=== PATIENT | female | born 1985 | race Asian ===

== ENCOUNTER 2021-01-20 00:33 | Observation (INO) ==
--- NOTE | 2021-01-20 05:15 | Communication Note ---
Date of Service: January 20, 2021 r/o labor. reactive nst
== END 2021-01-20 01:50 | disposition home or self-care (01) ==
LOC: OPB 00:33 → 4S1 00:33

== ENCOUNTER 2021-01-21 05:40 | Inpatient (IN) ==
[2021-01-21] MEDS ORDERED: OXYTOCIN 30 UNITS/500 ML BAG IV PRN (06:14)
[2021-01-21] MEDS ORDERED: PENICILLIN G POTASSIUM 6 MU in DEXTROSE 5% 250 ML IV STA (06:14)
[2021-01-21] MEDS ORDERED: fentaNYL citrate 100 MCG/2 ML VIAL ONE (06:20)
[2021-01-21] MEDS ORDERED: BUPIVACAINE 0.25% 30 ML VIAL ONE (06:20)
[2021-01-21] MEDS ORDERED: ePHEDrine sulfate 50 MG/ML AMP ONE (06:20)
[2021-01-21] MEDS ORDERED: SODIUM CHLORIDE 0.9% INJ 10 ML VIAL ONE (06:20)
[2021-01-21] MEDS ORDERED: fentaNYL 2MCG/ML ROPIVACAINE 1.25MG/ML 100 ML BAG EPI ONE (06:21)
[2021-01-21] MEDS: LACTATED RINGER'S 1,000 ML IV PRN ×3 (06:34→18:25)
[2021-01-21 07:00] LABS: Hematocrit (blood only) 38.9 % (37-47); Hemoglobin 13.9 g/dL (12.0-16.0); Mean Corpuscular Hemoglobin 33.3 pg (25-34); Mean Corpuscular Hgb Conc 35.7 g/dL (32-36); Mean Corpuscular Volume 93.3 fL (80-100); Mean Platelet Volume 10.5 fL (7.4-10.4); Platelet Count 190 K/uL (130-400); RDW Coefficient of Variation 13.8 % (11.5-14.5); RDW Standard Deviation 46.9 fL (36.4-46.3); Red Blood Count 4.17 M/uL (4.2-5.4); White Blood Count 8.45 K/uL (4.8-10.8)
--- NOTE | 2021-01-21 07:56 | Anesthesiology Consultation ---
Date of Service January 21, 2021 Assessment & Plan Chart Review Chart Review: Acceptable Risk for Labor Epidural Consults Requested none History Height/Weight Height: 5 ft 2.2 in Weight: 71.668 kg Allergies Allergy/AdvReac Type Severity Reaction Status Date / Time No Known Allergies Allergy Verified 01/19/21 09:07 Medications Home Medications Medication Instructions Recorded Confirmed Last Taken calcium carbonate 1 cap PO DAILY 01/20/21 01/20/21 Unknown docusate sodium 1 mg PO DAILY 01/20/21 01/20/21 Unknown ferrous sulfate 1 tab PO DAILY 01/20/21 01/20/21 Unknown folic acid 1 tab PO DAILY 01/20/21 01/20/21 01/19/21 omega-3 fatty acids 1 tab PO DAILY 01/20/21 01/20/21 Unknown ntdlbsgi-urr-He-FA 1 tab PO DAILY 01/20/21 01/20/21 Unknown [] Active Medications Generic Name Dose Route Start Last Admin Trade Name Freq PRN Reason Stop Dose Admin Lactated Ringer's 1,000 mls @ 125 mls/hr 01/21/21 06:14 01/21/21 07:39 Lr IV 01/23/21 06:13 999 mls/hr .Q8H PRN Administration L&D Protocol Protocol Past Medical History Medical History HPV test positive Past Family History Family History Denies family history of Ovarian cancer Breast cancer Colorectal cancer Past Surgical History Surgical History No history of previous surgery Social History Smoking Status: Never smoker Hx Alcohol Use: No Hx Substance Use: No substance use type: does not use Physical Exam Vital Signs Last Vital Signs Temp 36.9 C 01/21/21 07:46 Pulse 79 01/21/21 07:54 Resp 16 01/21/21 07:46 BP 115/65 01/21/21 07:48 Pulse Ox 97 01/21/21 07:54 Testing Laboratory Results 01/21/21 06:33
[2021-01-21] MEDS ORDERED: ePHEDrine sulfate 50 MG/ML AMP IV PRN ×2 (07:58→20:35)
[2021-01-21] MEDS ORDERED: NALOXONE HCL 0.4 MG/1 ML VIAL/CARP IV PRN ×2 (07:58→20:35)
[2021-01-21] MEDS ORDERED: fentaNYL 2MCG/ML ROPIVACAINE 1.25MG/ML 100 ML BAG EPI PRN (07:58)
[2021-01-21] MEDS ORDERED: diphenhydrAMINE 50 MG/ML VIAL IV PRN ×2 (07:58→20:35)
[2021-01-21] MEDS ORDERED: NALOXONE HCL 1 MG in SODIUM CHLORIDE 0.9% 1000ML 1,000 ML IV PRN ×2 (07:58→20:35)
[2021-01-21] MEDS: PENICILLIN G POTASSIUM 3 MU in DEXTROSE 5% 100 ML IV PRN ×3 (10:51→18:59)
--- NOTE | 2021-01-21 19:38 | Labor Progress Brief Note ---
Date of Service January 21, 2021 Subjective Patient very painful. Assessment & Plan (1) Failure of descent in labor, delivered, current hospitalization: Patient with new elevation in maternal temp (just taken and not charted yet per RN Dinah Chauhan) suggesting developing chorioamnionitis, with persistent high station and leakage of amniotic fluid with newly thick meconium and rising baseline; overall impression is likely CPD, chorio, and developing distress. Discussed with patient and FOB, recommended. They consent to proceed, consent form reviewed line by line and all questions answered. Assist surgeon called in as nursing staff is short and cannot provide nursing assistants teacher at this time, anesthesia made aware, plan to move to OR as soon as feasible. Admission and Anticipated Discharge Date Admission Date: January 21, 2021 Physical Exam Physical Exam: No descent; feels OP, asynclitic, still 0 station with easy elevation of head. Flow of mec-stained fluid with solid meconium chunks noted with elevation of head FHT with baseline 160, min to mod maria l, accels present, early decels present Goodwin Q2-3 Results & Data ([facility]) Vital Signs (Past 12 Hours) Vital Signs Temp Pulse Resp BP Pulse Ox 01/21/21 19:29 98 H 98 01/21/21 19:24 80 99 01/21/21 19:19 77 106/55 L 99 01/21/21 19:14 93 H 97 01/21/21 19:09 86 99 01/21/21 19:07 81 91 01/21/21 19:05 80 104/52 L 01/21/21 19:04 75 98 01/21/21 19:00 76 92 01/21/21 18:59 73 100 01/21/21 18:54 78 97 01/21/21 18:53 76 92 01/21/21 18:50 74 111/54 L 01/21/21 18:49 75 99 01/21/21 18:44 70 98 01/21/21 18:39 77 96 01/21/21 18:35 80 113/82 01/21/21 18:34 76 99 01/21/21 18:29 75 99 01/21/21 18:24 91 H 96 01/21/21 18:23 98.8 F 22 01/21/21 18:19 81 112/58 L 99 01/21/21 18:14 72 100 01/21/21 18:09 85 99 01/21/21 18:05 74 105/54 L 01/21/21 18:04 72 99 01/21/21 17:59 74 97 01/21/21 17:54 75 99 01/21/21 17:49 74 114/57 L 97 01/21/21 17:44 79 99 01/21/21 17:39 90 97 01/21/21 17:35 74 106/59 L 01/21/21 17:34 71 98 01/21/21 17:29 73 97 01/21/21 17:24 72 98 01/21/21 17:20 79 106/58 L 01/21/21 17:19 83 98 01/21/21 17:14 77 99 01/21/21 17:09 84 99 01/21/21 17:06 71 101/60 01/21/21 17:04 76 98 01/21/21 16:59 75 98 01/21/21 16:54 76 100 01/21/21 16:49 74 117/62 99 01/21/21 16:44 74 97 01/21/21 16:39 76 98 01/21/21 16:36 75 117/64 01/21/21 16:34 71 99 01/21/21 16:29 75 99 01/21/21 16:24 69 98 01/21/21 16:20 83 117/57 L 01/21/21 16:19 82 98 01/21/21 16:14 78 99 01/21/21 16:09 75 99 01/21/21 16:05 64 118/61 01/21/21 16:04 68 99 01/21/21 16:01 74 94 01/21/21 15:59 72 97 01/21/21 15:54 75 99 01/21/21 15:51 72 111/62 01/21/21 15:49 76 98 01/21/21 15:44 76 98 01/21/21 15:39 67 99 01/21/21 15:36 70 117/60 01/21/21 15:34 98.6 F 72 16 99 01/21/21 15:29 66 99 01/21/21 15:24 65 99 01/21/21 15:21 66 109/59 L 01/21/21 15:19 67 99 01/21/21 15:14 64 98 01/21/21 15:09 79 98 01/21/21 15:05 64 110/58 L 01/21/21 15:04 67 99 01/21/21 14:59 65 99 01/21/21 14:54 80 97 01/21/21 14:52 78 94 01/21/21 14:51 70 118/65 01/21/21 14:49 68 98 01/21/21 14:44 74 97 01/21/21 14:39 60 97 01/21/21 14:35 59 L 108/57 L 01/21/21 14:34 60 97 01/21/21 14:29 59 L 97 01/21/21 14:24 62 98 01/21/21 14:19 60 105/58 L 98 01/21/21 14:14 64 97 01/21/21 14:09 61 97 01/21/21 14:05 60 113/58 L 01/21/21 14:04 60 99 01/21/21 13:59 66 98 01/21/21 13:54 58 L 98 01/21/21 13:49 58 L 105/57 L 97 01/21/21 13:44 56 L 97 01/21/21 13:39 59 L 98 01/21/21 13:35 56 L 115/58 L 01/21/21 13:34 59 L 97 01/21/21 13:29 56 L 97 01/21/21 13:24 58 L 97 01/21/21 13:19 57 L 105/55 L 98 01/21/21 13:14 56 L 98 01/21/21 13:09 56 L 97 01/21/21 13:06 55 L 103/55 L 01/21/21 13:04 55 L 97 01/21/21 12:59 56 L 96 01/21/21 12:54 65 98 01/21/21 12:50 59 L 108/53 L 01/21/21 12:49 59 L 97 01/21/21 12:44 57 L 97 01/21/21 12:39 60 97 01/21/21 12:34 57 L 106/56 L 97 01/21/21 12:29 57 L 98 01/21/21 12:24 59 L 98 01/21/21 12:22 98.4 F 18 04/25/21 12:20 58 L 96/51 L 01/21/21 12:19 61 98 01/21/21 12:14 69 97 01/21/21 12:09 67 98 01/21/21 12:06 64 92/52 L 01/21/21 12:04 63 97 01/21/21 11:59 62 98 01/21/21 11:54 74 98 01/21/21 11:49 61 92/52 L 98 01/21/21 11:44 61 97 01/21/21 11:39 68 98 01/21/21 11:35 58 L 92/52 L 01/21/21 11:34 60 97 01/21/21 11:29 58 L 98 01/21/21 11:24 60 97 01/21/21 11:19 59 L 97/55 L 98 01/21/21 11:14 60 97 01/21/21 11:09 65 97 01/21/21 11:06 63 102/54 L 01/21/21 11:04 63 96 01/21/21 10:59 58 L 97 01/21/21 10:54 69 98 01/21/21 10:53 98.2 F 19 01/21/21 10:50 62 104/53 L 01/21/21 10:49 66 99 01/21/21 10:44 64 97 01/21/21 10:39 63 97 01/21/21 10:34 73 92/52 L 98 01/21/21 10:29 61 97 01/21/21 10:24 69 98 01/21/21 10:20 61 89/53 L 01/21/21 10:19 61 98 01/21/21 10:14 73 98 01/21/21 10:09 73 98 01/21/21 10:08 69 100/55 L 01/21/21 10:04 58 L 97 01/21/21 09:59 63 103/61 98 01/21/21 09:54 70 98 01/21/21 09:49 60 98 01/21/21 09:48 62 100/60 01/21/21 09:44 70 98 01/21/21 09:39 67 98 01/21/21 09:38 68 101/67 01/21/21 09:34 59 L 98 01/21/21 09:29 67 97 04/25/21 09:28 74 101/69 01/21/21 09:24 65 97 01/21/21 09:19 63 117/68 96 01/21/21 09:14 63 98 01/21/21 09:09 63 97 01/21/21 09:08 64 105/58 L 01/21/21 09:04 62 97 01/21/21 08:59 67 98 01/21/21 08:58 60 107/58 L 01/21/21 08:54 66 98 01/21/21 08:49 60 108/60 98 01/21/21 08:44 70 99 01/21/21 08:39 64 98 01/21/21 08:38 76 114/58 L 01/21/21 08:34 77 99 01/21/21 08:29 63 112/63 99 01/21/21 08:24 80 99 01/21/21 08:19 78 99 01/21/21 08:18 77 113/59 L 01/21/21 08:14 68 98 01/21/21 08:10 71 120/63 01/21/21 08:09 73 99 01/21/21 08:04 80 98 01/21/21 08:00 77 125/63 01/21/21 07:59 81 98 01/21/21 07:54 79 97 01/21/21 07:49 73 99 01/21/21 07:48 86 115/65 01/21/21 07:46 98.4 F 85 16 108/67 01/21/21 07:44 79 113/68 99 01/21/21 07:42 72 111/63 01/21/21 07:40 79 110/67 01/21/21 07:39 72 97 01/21/21 07:38 68 109/58 L 01/21/21 07:36 64 118/63 01/21/21 07:34 74 116/62 98 Coding Level of Care Code None Diagnoses Failure of descent in labor, delivered, current hospitalization O62.2
[2021-01-21] MEDS ORDERED: CEFAZOLIN 3000 MG IV SCH (19:45)
[2021-01-21] MEDS ORDERED: LACTATED RINGER'S 1,000 ML IV SCH (19:45)
[2021-01-21] MEDS ORDERED: CITRIC ACID/SODIUM CITRATE 15 ML UDC PO SCH (19:45)
[2021-01-21] MEDS ORDERED: MoRPHine SULFATE PF 1 MG/ML 10 ML AMP/VIAL ONE (19:46)
[2021-01-21] MEDS ORDERED: LIDOCAINE/EPINEPHRINE 2% 1:200,000 20 ML SDV ONE (19:52)
[2021-01-21] MEDS ORDERED: LIDOCAINE HCL 2% MPF (LOCAL) 5 ML VIAL INFIL ONE (19:52)
[2021-01-21] MEDS ORDERED: PROPOFOL IV EMULSION 10 MG/ML 20 ML VIAL IV ONE (19:52)
[2021-01-21] MEDS ORDERED: METOCLOPRAMIDE HCL INJ 5 MG/ML 2 ML VIAL ONE (19:52)
[2021-01-21] MEDS ORDERED: OXYTOCIN 10 UNITS/ML VIAL ONE (19:52)
[2021-01-21] MEDS ORDERED: ONDANSETRON INJ 2 MG/ML 2 ML VIAL ONE (19:52)
[2021-01-21] MEDS ORDERED: MEPERIDINE HCL 25 MG/ML CARP/VIAL ONE (20:26)
[2021-01-21] MEDS ORDERED: NALOXONE HCL 0.08 MG in SYRINGE 1.8 ML IV PRN (20:35)
[2021-01-21] MEDS ORDERED: MoRPHine SULFATE PF 1 MG/ML 10 ML AMP/VIAL EPI ONE (20:35)
[2021-01-21] MEDS ORDERED: MEPERIDINE HCL 25 MG/ML CARP/VIAL IV PRN (20:35)
[2021-01-21] MEDS ORDERED: PROMETHAZINE HCL 12.5 MG in SODIUM CHLORIDE 0.9% 50 ML IV PRN (20:35)
[2021-01-21] MEDS ORDERED: ONDANSETRON INJ 2 MG/ML 2 ML VIAL IV PRN (20:35)
[2021-01-21] MEDS ORDERED: LACTATED RINGER'S 500 ML IV PRN (20:35)
[2021-01-21] MEDS ORDERED: NO NARCOTICS OR SEDATIVES SCH (20:45)
[2021-01-21] MEDS ORDERED: SODIUM CHLORIDE 0.9% 1000ML 1,000 ML IV SCH (20:45)
--- NOTE | 2021-01-21 21:01 | Operative Report ---
PG Post Operative Report Pre & Post Diagnosis Operation Date: 01/21/21 19:50 Pre-Op Diagnosis: Failure to Descend;Chorioamnionitis; Heart Tones Category 2 Post-Op Diagnosis: Same; Delivery of a live baby girl at 2019 ( Main OR 3) I identified the patient and participated in the time-out.: Yes Procedure Operation Date: 01/21/21 19:50 Actual Procedures Primary low transverse section Surgeon Roz Bhagat MD Director Of Business Operations MD Serena Estimated Blood Loss 800 Findings Consistent with Post-Op Diagnosis Specimens Placenta, cord blood Anesthesia Type Spinal Complications none Disposition Accompanied Patient To Recovery: Yes Disposition: L&D Description of Procedure The patient was brought to the operating room and placed on the table in the supine position with a leftward tilt, then prepped and draped in standard sterile fashion. The rsusell was draining [id number] colored urine prior to beginning the surgical procedure, due to second stage of labor. A hard time out was taken prior to proceeding. A pfannensteil incision was created sharply and carried down to the fascia using bovie electrocautery. The fascia was nicked and then extended using ridley scissors. The edges of the fascia were grasped with Hussein clamps and elevated, then sharply and bluntly dissected off the underlying rectus. The midline of the rectus was identified and bluntly . The peritoneum was bluntly entered, and this entry was extended using pressure from the surgeon's hands. The bladder retractor was placed and the lower uterine segment was examined and found to be well developed. A bladder flap was created and the retractor was replaced behind this flap to protect the bladder. A transverse lower uterine incision was then created, with final entry to the uterine cavity made in a blunt manner with the surgeon's finger. Thick meconium amniotic fluid was encountered. The head was easily elevated to the incision and delivered using mild fundal pressure, and was noted to have asynclitic molding as expected. The cord was doubly clamped and cut, then the vigorous infant was taken to the warmer for telesales team leader care. The placenta was manually extracted, then the uterus was gently exteriorized from the maternal abdomen. The cavity was cleared of clot and debris using a dry lap sponge. The angles of the incision were identified with allis clamps, and the hysterotomy was then repaired in running locked fashion using 0-vicryl suture, followed by a second imbricating layer. A few additional figure of eight sutures were used to control oozing, and Cassie was applied. The tubes and ovaries were examined and found to be normal bilaterally. The posterior gutter was irrigated and cleared of clot and debris. The uterus was then gently re- internalized to the abdomen. Lateral gutters were cleared of clot and debris using a damp lap sponge, and a final exam of the hysterotomy revealed good hemostasis. The rectus muscles were allowed to reapproximate naturally. The angle of the fascia was grasped with a Hussein clamp and the fascia was then repaired in running non-locked fashion with 1-vicryl suture. At the completion of repair, the fascia was examined and found to be free of any defect. The subcutaneous tissue was copiously irrigated. The skin was then closed using 4-0 monocryl in a running subcuticular fashion and a dermabond dressing was applied. The patient was transferred back to her recovery room. I attest to the content of the Intraoperative Record and any orders documented therein. Any exceptions are noted below.
--- NOTE | 2021-01-21 21:08 | Anesthesia Procedure Note ---
Date of Service January 21, 2021 Anesthesia Post Epidural Note Vital Signs Vital Signs: Temp Pulse Resp BP Pulse Ox 38.2 C H 93 H 18 129/80 98 01/21/21 19:15 01/21/21 19:54 01/21/21 19:15 01/21/21 19:50 01/21/21 19:54 Notes Mental Status: alert / awake / arousable and participated in evaluation Nausea / Vomiting: adequately controlled Pain: adequately controlled Airway Patency, RR, SpO2: stable & adequate BP & HR: stable & adequate Hydration State: stable & adequate Neuraxial Anesthesia: was administered and sensory block is resolving Anesthetic Complications: no major complications apparent Epidural: Removed without complications and With tip intact
[2021-01-21] MEDS ORDERED: DIPHTHERIA/TETANUS/PERTUSSIS 0.5 ML SYR/VIAL IM ONE (21:29)
[2021-01-21] MEDS ORDERED: SUPERCREAM 0.870% 15 GM JAR EXT PRN (21:29)
[2021-01-21] MEDS ORDERED: BENZOCAINE 20% AER SPR 82.5 GM CAN EXT PRN (21:29)
[2021-01-21] MEDS ORDERED: MAGNESIUM HYDROXIDE SUSP 30 ML UDC PO PRN (21:29)
[2021-01-21] MEDS ORDERED: SENNA 8.6 MG TAB PO PRN (21:29)
[2021-01-21] MEDS ORDERED: HYDROCORTISONE ACETATE 25 MG SUPP PR PRN (21:29)
[2021-01-21] MEDS ORDERED: OXYTOCIN 30 UNITS in LACTATED RINGER'S 1,000 ML IV SCH (21:45)
[2021-01-21] MEDS: KETOROLAC 30 MG/ML VIAL IV PRN (22:16)
--- NOTE | 2021-01-21 22:26 | Anesthesiology Progress Note ---
Date of Service January 21, 2021 Anesthesia Post Procedure Vital Signs Vital Signs: Temp Pulse Resp BP Pulse Ox 01/21/21 22:23 79 97 01/21/21 22:18 82 96 01/21/21 22:16 89 107/57 L 01/21/21 22:13 87 107/56 L 97 01/21/21 22:08 88 96 01/21/21 22:03 102 H 97 01/21/21 21:58 97 H 97 01/21/21 21:53 101 H 97 01/21/21 21:48 100 H 96 01/21/21 21:43 109 H 97 01/21/21 21:41 106 H 91/54 L 01/21/21 21:38 116 H 97 01/21/21 21:33 114 H 97 01/21/21 21:28 127 H 96 01/21/21 21:23 120 H 96 01/21/21 21:22 85 100/44 L 01/21/21 21:18 109 H 95 01/21/21 21:15 36.7 C 16 01/21/21 21:13 99 H 94 01/21/21 21:12 104 H 122/53 L 01/21/21 19:54 93 H 98 01/21/21 19:50 86 129/80 01/21/21 19:49 79 98 01/21/21 19:48 78 93 01/21/21 19:44 80 98 01/21/21 19:39 94 H 98 01/21/21 19:34 97 H 98 01/21/21 19:29 98 H 98 01/21/21 19:24 80 99 01/21/21 19:19 77 106/55 L 99 01/21/21 19:15 38.2 C H 18 01/21/21 19:14 93 H 97 01/21/21 19:09 86 99 01/21/21 19:07 81 91 01/21/21 19:05 80 104/52 L 01/21/21 19:04 75 98 01/21/21 19:00 76 92 01/21/21 18:59 73 100 01/21/21 18:54 78 97 01/21/21 18:53 76 92 01/21/21 18:50 74 111/54 L 01/21/21 18:49 75 99 01/21/21 18:44 70 98 01/21/21 18:39 77 96 01/21/21 18:35 80 113/82 01/21/21 18:34 76 99 01/21/21 18:29 75 99 01/21/21 18:24 91 H 96 01/21/21 18:23 37.1 C 22 01/21/21 18:19 81 112/58 L 99 01/21/21 18:14 72 100 01/21/21 18:09 85 99 01/21/21 18:05 74 105/54 L 01/21/21 18:04 72 99 01/21/21 17:59 74 97 01/21/21 17:54 75 99 01/21/21 17:49 74 114/57 L 97 01/21/21 17:44 79 99 01/21/21 17:39 90 97 01/21/21 17:35 74 106/59 L 01/21/21 17:34 71 98 01/21/21 17:29 73 97 01/21/21 17:24 72 98 01/21/21 17:20 79 106/58 L 01/21/21 17:19 83 98 01/21/21 17:14 77 99 01/21/21 17:09 84 99 01/21/21 17:06 71 101/60 01/21/21 17:04 76 98 01/21/21 16:59 75 98 01/21/21 16:54 76 100 01/21/21 16:49 74 117/62 99 01/21/21 16:44 74 97 01/21/21 16:39 76 98 01/21/21 16:36 75 117/64 01/21/21 16:34 71 99 01/21/21 16:29 75 99 01/21/21 16:24 69 98 01/21/21 16:20 83 117/57 L 01/21/21 16:19 82 98 01/21/21 16:14 78 99 01/21/21 16:09 75 99 01/21/21 16:05 64 118/61 01/21/21 16:04 68 99 01/21/21 16:01 74 94 01/21/21 15:59 72 97 01/21/21 15:54 75 99 01/21/21 15:51 72 111/62 01/21/21 15:49 76 98 01/21/21 15:44 76 98 01/21/21 15:39 67 99 01/21/21 15:36 70 117/60 01/21/21 15:34 37.0 C 72 16 99 01/21/21 15:29 66 99 01/21/21 15:24 65 99 01/21/21 15:21 66 109/59 L 01/21/21 15:19 67 99 01/21/21 15:14 64 98 01/21/21 15:09 79 98 01/21/21 15:05 64 110/58 L 01/21/21 15:04 67 99 01/21/21 14:59 65 99 01/21/21 14:54 80 97 01/21/21 14:52 78 94 01/21/21 14:51 70 118/65 01/21/21 14:49 68 98 01/21/21 14:44 74 97 01/21/21 14:39 60 97 01/21/21 14:35 59 L 108/57 L 01/21/21 14:34 60 97 01/21/21 14:29 59 L 97 01/21/21 14:24 62 98 01/21/21 14:19 60 105/58 L 98 01/21/21 14:14 64 97 01/21/21 14:09 61 97 01/21/21 14:05 60 113/58 L 01/21/21 14:04 60 99 01/21/21 13:59 66 98 01/21/21 13:54 58 L 98 01/21/21 13:49 58 L 105/57 L 97 01/21/21 13:44 56 L 97 01/21/21 13:39 59 L 98 01/21/21 13:35 56 L 115/58 L 01/21/21 13:34 59 L 97 01/21/21 13:29 56 L 97 01/21/21 13:24 58 L 97 01/21/21 13:19 57 L 105/55 L 98 01/21/21 13:14 56 L 98 01/21/21 13:09 56 L 97 01/21/21 13:06 55 L 103/55 L 01/21/21 13:04 55 L 97 01/21/21 12:59 56 L 96 01/21/21 12:54 65 98 01/21/21 12:50 59 L 108/53 L 01/21/21 12:49 59 L 97 01/21/21 12:44 57 L 97 01/21/21 12:39 60 97 01/21/21 12:34 57 L 106/56 L 97 01/21/21 12:29 57 L 98 01/21/21 12:24 59 L 98 01/21/21 12:22 36.9 C 18 01/21/21 12:20 58 L 96/51 L 01/21/21 12:19 61 98 01/21/21 12:14 69 97 01/21/21 12:09 67 98 01/21/21 12:06 64 92/52 L 01/21/21 12:04 63 97 01/21/21 11:59 62 98 01/21/21 11:54 74 98 01/21/21 11:49 61 92/52 L 98 01/21/21 11:44 61 97 01/21/21 11:39 68 98 01/21/21 11:35 58 L 92/52 L 01/21/21 11:34 60 97 01/21/21 11:29 58 L 98 01/21/21 11:24 60 97 01/21/21 11:19 59 L 97/55 L 98 01/21/21 11:14 60 97 01/21/21 11:09 65 97 01/21/21 11:06 63 102/54 L 01/21/21 11:04 63 96 01/21/21 10:59 58 L 97 01/21/21 10:54 69 98 01/21/21 10:53 36.8 C 19 01/21/21 10:50 62 104/53 L 01/21/21 10:49 66 99 01/21/21 10:44 64 97 01/21/21 10:39 63 97 01/21/21 10:34 73 92/52 L 98 01/21/21 10:29 61 97 01/21/21 10:24 69 98 01/21/21 10:20 61 89/53 L 01/21/21 10:19 61 98 01/21/21 10:14 73 98 01/21/21 10:09 73 98 01/21/21 10:08 69 100/55 L 01/21/21 10:04 58 L 97 01/21/21 09:59 63 103/61 98 04/25/21 09:54 70 98 01/21/21 09:49 60 98 01/21/21 09:48 62 100/60 01/21/21 09:44 70 98 01/21/21 09:39 67 98 01/21/21 09:38 68 101/67 01/21/21 09:34 59 L 98 01/21/21 09:29 67 97 01/21/21 09:28 74 101/69 01/21/21 09:24 65 97 01/21/21 09:19 63 117/68 96 01/21/21 09:14 63 98 01/21/21 09:09 63 97 01/21/21 09:08 64 105/58 L 01/21/21 09:04 62 97 01/21/21 08:59 67 98 01/21/21 08:58 60 107/58 L 01/21/21 08:54 66 98 01/21/21 08:49 60 108/60 98 01/21/21 08:44 70 99 01/21/21 08:39 64 98 01/21/21 08:38 76 114/58 L 01/21/21 08:34 77 99 01/21/21 08:29 63 112/63 99 01/21/21 08:24 80 99 01/21/21 08:19 78 99 01/21/21 08:18 77 113/59 L 01/21/21 08:14 68 98 01/21/21 08:10 71 120/63 01/21/21 08:09 73 99 01/21/21 08:04 80 98 01/21/21 08:00 77 125/63 01/21/21 07:59 81 98 01/21/21 07:54 79 97 01/21/21 07:49 73 99 01/21/21 07:48 86 115/65 01/21/21 07:46 36.9 C 85 16 108/67 01/21/21 07:44 79 113/68 99 01/21/21 07:42 72 111/63 01/21/21 07:40 79 110/67 01/21/21 07:39 72 97 01/21/21 07:38 68 109/58 L 01/21/21 07:36 64 118/63 01/21/21 07:34 74 116/62 98 01/21/21 07:32 77 126/62 01/21/21 07:29 72 100 01/21/21 07:24 79 100 01/21/21 07:19 76 99 01/21/21 05:57 36.8 C 20 01/21/21 05:52 76 120/68 01/21/21 05:50 36.7 C 20 Transfer of Care Handoff Completed per policy Notes Mental Status: alert / awake / arousable and participated in evaluation Patient Amnestic to Procedure: Yes Nausea / Vomiting: adequately controlled Pain: adequately controlled Airway Patency, RR, SpO2: stable & adequate BP & HR: stable & adequate Hydration State: stable & adequate Neuraxial Anesthesia: was administered and sensory block is resolving Anesthetic Complications: no major complications apparent
[2021-01-21] MEDS: LACTATED RINGER'S 1,000 ML IV SCH (22:49)
[2021-01-22] MEDS: LACTATED RINGER'S 1,000 ML IV SCH (06:10)
[2021-01-22 06:47] LABS: Basophils # (auto) 0.02 K/uL (0-0.2); Basophils % (auto) 0.2 %; Eosinophils # (auto) 0.01 K/uL (0-0.5); Eosinophils % (auto) 0.1 %; Hematocrit (blood only) 29.5 % (37-47); Hemoglobin 10.5 g/dL (12.0-16.0); Immature Granulocytes # (auto) 0.02 K/uL (0.00-0.02); Immature Granulocytes % (auto) 0.2 %; Lymphocytes # (auto) 1.13 K/uL (1.2-3.4); Lymphocytes % (auto) 8.6 %; Mean Corpuscular Hemoglobin 33.3 pg (25-34); Mean Corpuscular Hgb Conc 35.6 g/dL (32-36); Mean Corpuscular Volume 93.7 fL (80-100); Monocytes # (auto) 0.77 K/uL (0.11-0.59); Monocytes % (auto) 5.9 %; Neutrophils # (auto) 11.18 K/uL (1.4-6.5); Platelet Count 151 K/uL (130-400); RDW Coefficient of Variation 13.8 % (11.5-14.5); RDW Standard Deviation 47.4 fL (36.4-46.3); Red Blood Count 3.15 M/uL (4.2-5.4); White Blood Count 13.13 K/uL (4.8-10.8)
--- NOTE | 2021-01-22 07:24 | Obstetrical Progress Note ---
Date of Service January 22, 2021 Assessment & Plan (1) Postoperative state: Recovering POD#1 <24hr from . Routine care today, TOV, ambulate, etc. successfully. Subjective Passing Gas:: Yes Diet Tolerance:: regular diet Lochia:: Small Feeding Type:: breast feeding Physical Exam Constitutional WD/WN, vitals as above Eyes PERRL, conjunctivae normal, anicteric sclerae Neck normal visual inspection Respiratory normal respiratory effort and able to speak in complete sentences; no respiratory distress and no labored breathing Cardiovascular Rate/Rhythm: regular rate and regular rhythm Extremities: no edema Chest (Breasts) Chest: normal inspection of chest Gastrointestinal (Abdomen) Inspection/Auscultation: abdomen normal to inspection Soft, postgravid Incision c/d/i with surgiseal Psychiatric A+Ox3, euthymic affect Genitourinary OB Exam Abdomen: + fundal height Fundus: + firm and + relation to umbilicus (fundus just below umbilicus); not tender Results & Data ([facility]) Vital Signs (Past 12 Hours) Vital Signs Temp Pulse Pulse Resp BP BP Pulse Ox 01/22/21 06:45 18 99 01/22/21 05:45 16 95 01/22/21 04:45 98.8 F 67 16 92/54 L 98 01/22/21 03:45 16 94 01/22/21 02:45 16 96 01/22/21 01:45 18 97 01/22/21 00:45 16 92 01/21/21 23:45 98.8 F 71 16 111/59 L 97 01/21/21 23:33 74 95 01/21/21 23:28 76 98 01/21/21 23:24 74 111/59 L 01/21/21 23:23 71 98 01/21/21 23:18 75 97 01/21/21 23:16 69 100/53 L 01/21/21 23:13 76 97 01/21/21 23:10 77 94 01/21/21 23:08 75 95 01/21/21 23:03 85 95 01/21/21 23:01 99 H 111/65 01/21/21 22:58 89 95 01/21/21 22:53 95 H 94 01/21/21 22:52 91 H 94 01/21/21 22:48 79 96 01/21/21 22:46 83 98/52 L 01/21/21 22:45 18 01/21/21 22:43 99 H 96 01/21/21 22:40 97 H 94 01/21/21 22:38 107 H 95 01/21/21 22:35 87 94 01/21/21 22:33 90 95 01/21/21 22:31 93 H 101/57 L 01/21/21 22:28 96 H 95 01/21/21 22:23 79 97 01/21/21 22:18 82 96 01/21/21 22:16 89 107/57 L 01/21/21 22:13 87 107/56 L 97 01/21/21 22:08 88 96 01/21/21 22:03 102 H 97 01/21/21 21:58 97 H 97 01/21/21 21:53 101 H 97 01/21/21 21:48 100 H 96 01/21/21 21:43 109 H 97 01/21/21 21:41 106 H 91/54 L 01/21/21 21:38 116 H 97 01/21/21 21:33 114 H 97 01/21/21 21:28 127 H 96 01/21/21 21:23 120 H 96 01/21/21 21:22 85 100/44 L 01/21/21 21:18 109 H 95 01/21/21 21:15 98.1 F 16 01/21/21 21:13 99 H 94 01/21/21 21:12 104 H 122/53 L 01/21/21 19:54 93 H 98 01/21/21 19:50 86 129/80 01/21/21 19:49 79 98 01/21/21 19:48 78 93 01/21/21 19:44 80 98 01/21/21 19:39 94 H 98 01/21/21 19:34 97 H 98 01/21/21 19:29 98 H 98 01/21/21 19:24 80 99
[2021-01-22] MEDS: SIMETHICONE 80 MG CHEW PO SCH ×4 (08:19→20:03)
[2021-01-22] MEDS: FERROUS SULFATE 325 MG TAB PO SCH (08:19)
[2021-01-22] MEDS: PRENATAL VITAMIN 1 TAB PO SCH (08:20)
[2021-01-22] MEDS: DOCUSATE SODIUM 100 MG CAP PO SCH ×2 (08:20→20:03)
[2021-01-22] MEDS: KETOROLAC 30 MG/ML VIAL IV PRN ×2 (08:20→14:34)
[2021-01-22] MEDS ORDERED: PROMETHAZINE HCL 25 MG in SODIUM CHLORIDE 0.9% 50 ML IV PRN (14:35)
[2021-01-22] MEDS ORDERED: MEPERIDINE HCL 50 MG/ML CARP IV PRN (14:35)
[2021-01-22] MEDS ORDERED: KETOROLAC 30 MG/ML VIAL IV PRN (14:35)
[2021-01-22] MEDS ORDERED: ONDANSETRON INJ 2 MG/ML 2 ML VIAL IV PRN (14:35)
[2021-01-22] MEDS ORDERED: DC INTRASPINAL MORPHINE SCH (14:35)
[2021-01-22] MEDS ORDERED: diphenhydrAMINE Capsule 25 MG CAP PO PRN (14:35)
[2021-01-22] MEDS ORDERED: diphenhydrAMINE 50 MG/ML VIAL IV PRN (14:35)
[2021-01-22] MEDS: IBUPROFEN 600 MG TAB PO PRN (20:03)
[2021-01-22] MEDS: oxyCODONE/ACETAMINOPHEN 5mg/325mg TAB PO PRN (20:04)
[2021-01-23] MEDS: IBUPROFEN 600 MG TAB PO PRN ×3 (06:14→15:45)
[2021-01-23 06:56] LABS: Hematocrit (blood only) 28.4 % (37-47); Hemoglobin 9.9 g/dL (12.0-16.0)
--- NOTE | 2021-01-23 07:31 | Obstetrical Progress Note ---
Date of Service <Kamran Phan MD - Last Filed: 01/23/21 07:57> January 23, 2021 Assessment & Plan <Kamran Phan MD - Last Filed: 01/23/21 07:57> (1) : A/P: Lita Gimenez is a 36 y/o female on POD#2 s/p delivery at 39+2wga. * VSS - afebrile for over 24hr * Patient feels well today; eating well, voiding well, ambulating well * Pain well-controlled with oxycodone/acetaminophen 2 tabs q4h prn * PNL: Rh pos, RI, GBS pos, COVID neg * Routine post- care: OOB, ambulation, diet progression as tolerated * After discharge, will have six-week follow-up with Dr. Leola Vasquez <Kamran Phan MD - Last Filed: 01/23/21 07:57> Lita Gimenez is a 36yo on POD#2 s/p delivery by at 39+2wga. This morning she reports feeling well overall.Reports mild, 2/10 crampy abdominal pain well-managed on analgesics. Tolerating PO intake without nausea or vomiting. Patient has been able to ambulate without lightheadedness or dizziness. Lochia continues, though with some improvement this morning. Ponce catheter has been removed and patient is voiding without difficulty. Currently . Review of Systems Denies fever, chills, CP, SOB, cough, breast pain, dysuria, leg pain, leg swelling, headache, and changes in vision. Physical Exam <Kamran Phan MD - Last Filed: 01/23/21 07:57> Gen: awake, alert, oriented, laying in bed comfortably Cardiac: regular rhythm, no murmurs appreciated Resp: lungs CTABL, good respiratory effort, no increased WOB, no wheezes/rales/rhonchi Abd: normal gravid abdomen, soft, minimally tender, BS present, surgical incision clean, dry, and intact : uterine fundus firm, palpable at umbilicus LE: no lower extremity edema or swelling, no deep calf pain, Hernán's negative bilaterally Results & Data ([facility]) <Kamran Phan MD - Last Filed: 01/23/21 07:57> Vital Signs (Past 12 Hours) Vital Signs Temp Pulse Resp BP Pulse Ox 01/22/21 23:30 36.6 C 74 18 108/68 01/22/21 19:44 37.0 C 82 18 99/64 L 97 <Jose Ramon Lyons MD - Last Filed: 01/23/21 08:18> Co-Signing Physician Notes Patient seen and evaluated and agree with the above findings and plan. Doing well. Stable for discharge. Resident Activity Tracking <Kamran Phan MD - Last Filed: 01/23/21 07:57> Resident Involvement: Resident Care Provided Care Provided: Adult Hospital Medicine
[2021-01-23] MEDS: SIMETHICONE 80 MG CHEW PO SCH ×2 (07:57→11:55)
[2021-01-23] MEDS: DOCUSATE SODIUM 100 MG CAP PO SCH (07:57)
[2021-01-23] MEDS: oxyCODONE/ACETAMINOPHEN 5mg/325mg TAB PO PRN ×3 (07:57→15:45)
[2021-01-23] MEDS: FERROUS SULFATE 325 MG TAB PO SCH (07:57)
[2021-01-23] MEDS: PRENATAL VITAMIN 1 TAB PO SCH (07:57)
--- NOTE | 2021-01-23 11:17 | Communication Note ---
Date of Service: January 23, 2021 Called by nursing as patient indicating that doctor told pt he was discharging her today, this afternoon and that no orders or discharge instructions were in. I spoke to resident and read the note and apparently he thought she wasn't to go home today and despite me not bothering postcall doctor, the resident did and said the doctor also was not expecting patient to go home. 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 If patient objects or has any concerns nurse to call me so I can come speak to patient.
--- NOTE | 2021-01-23 13:55 | Obstetrical Progress Note ---
Date of Service January 23, 2021 Assessment & Plan (1) Postoperative state: pt is doing well, nursing called me to let me know she is doing well and pain control adeq and does want to go home. instructions reviewed and plan for 6wk pp check. percocet was sent to [facility] earlier today. labs and vitals reviewed. pt declines any needs or questions or concerns. Day #:: 2 Subjective Ambulation: ambulating normally Voiding: no voiding problems Diet Tolerance:: regular diet Lochia:: Small Feeding Type:: breast feeding says pain control is good, aware of benefit of po pain meds. pt wants to go home. says she has good support and has a 13yo step daughter at home that they want to return to. going well. feels ready. Physical Exam Constitutional WD/WN, vitals as above Results & Data ([facility]) Vital Signs (Past 12 Hours) Vital Signs Temp Pulse Resp BP Pulse Ox 01/23/21 07:50 97.9 F 70 18 99/66 L 97
--- NOTE | 2021-01-24 08:37 | Discharge Summary ---
Date of Service January 24, 2021 Discharge Data Consultations 01/21/21 06:14 Consult Anesthesiology Stat 01/21/21 19:31 Consult Anesthesiology Stat Procedures Performed Operation Date: 01/21/21 19:50 Actual Procedures p Section in LD - Roz Bhagat MD Hospital Course (1) Failure of descent in labor, delivered, current hospitalization: Patient admitted in labor / ROM, progressed to complete dilation and pushed for approx 1 hour without significant progress. Diagnosed with FTD, and proceeded to section which was uncomplicated. She had an unremarkable post- course and was discharged to home on POD#2 in good condition, with typical f/u plan for 6 weeks in office. Coding Level of Care Code None Diagnoses Failure of descent in labor, delivered, current hospitalization O62.2
== END 2021-01-23 16:20 | disposition home or self-care (01) | DRG 786 ==
LOC: OPB 05:40 → 4S1 05:41 → 4S2 23:30

== ENCOUNTER 2023-04-12 02:59 | Inpatient (IN) ==
[2023-04-12] MEDS ORDERED: OXYTOCIN 30 UNITS/500 ML BAG IV PRN (08:00)
[2023-04-12] MEDS ORDERED: LIDOCAINE 1% LOCAL 20 ML VIAL INFIL PRN (08:00)
[2023-04-12] MEDS ORDERED: PENICILLIN G POTASSIUM 6 MU in DEXTROSE 5% 250 ML IV STA (08:00)
--- NOTE | 2023-04-12 08:00 | History & Physical Report ---
Date of Service April 12, 2023 Assessment & Plan (1) Previous delivery affecting , antepartum: (2) Carrier of group B Streptococcus: (3) Encounter for trial of labor: Plan 38 yo at 37 3/7 wga presents in apparent labor ,desiring tolac VSS Fetus cat 1 Labor - has progressed from 2cm to 4-5cm, discussed admission as apparently in labor. Pt strongly desires tolac. Did discuss risk of tolac including 1% risk of uterine rupture and potential catastrophic consequences including maternal and/or . Consent was previously signed and pt desires to continue GBS+, pcn ordered epidural prn History of Present Illness Chief Complaint: decreased FM Primary Care Provider: Win Comer MD 38 yo at 37 3/7 wga presented for evaluation due to decreased FM and two small blood clots. On arrival, she began feeling more movement and had not noted more bleeding. Denied regular ctx, LOF, VB. 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[employer] Hx: G1 12/2020 pLTCS G2 current regular cycles 06/2021 neg cotest denies hx stis Allergies Allergy/AdvReac Type Severity Reaction Status Date / Time No Known Allergies Allergy Verified 04/09/23 09:51 Home Medications Medication Instructions Recorded Confirmed Type omega-3 fatty acids [Fish Oil PO 07/20/21 04/09/23 History Concentrate] folic acid PO 07/11/22 04/09/23 History docusate sodium 50 mg capsule 50 mg PO DAILY 04/12/23 04/12/23 History prenat.vits,vlad,daj-npnw-ebmkf tab PO 04/12/23 History Patient History Medical History Elderly primigravida Failure of descent in labor, delivered, current hospitalization Group beta Strep positive HPV test positive Surgical History Delivery by section No history of previous surgery Postoperative state Family History Family/Other Gaytan syndrome Denies family history of Ovarian cancer Breast cancer Colorectal cancer Social History (Updated 09/16/22 @ 10:04 by Dorina North Smoking Status: Never smoker Second Hand Exposure: No; Do You Dip or Chew Tobacco: No; Hx Alcohol Use: No Hx Substance Use: No Preferred Language: Mandarin Japanese Communication Ability: Effective C 13 Catapult Operator Required: Yes Beliefs That Will Affect Care: None marital status: marital status details: Jaden Landin (48) [phone] Current Living Situation: Spouse Current Living Situation Comment: and daughter (2.5yo) current occupational status: unemployed 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 Other Information That Helps Us Care for You: No Feels Safe at Home: Yes Safety Concerns: Feels Safe At This Time Assistive Devices: None Physical Exam Genitourinary: OB Exam Monitor Tracing: + external FHT monitor used, + external uterine monitor used (irreg ctx) and + category I (135-140cm/mod/+accel/-decel) SVE - brown discharge, no bright red blood blood seen SSE initially 2-3cm on arrival, recheck 2 hrs later was 4-5cm Results & Data Vital Signs (Past 12 Hours) Vital Signs Temp Pulse Resp BP 04/12/23 05:59 20 04/12/23 05:59 98.2 F 20 04/12/23 05:58 70 111/64 04/12/23 03:29 69 95/50 L 04/12/23 03:10 98.6 F 18 Laboratory Results OB Labs: Blood Type O Positive 09/26/22 Antibody Screen NEGATIVE 09/26/22 Hemoglobin 12.5 g/dl (12.0-16.0) 02/07/23 Hematocrit 35.5 % (37.0-47.0) L 02/07/23 Mean Corpuscular Volume 86.3 fL (80.0-100.0) 09/26/22 Platelet Count 246 K/uL (130-400) 09/26/22 Rubella IgG Antibody Immune (Immune) 09/26/22 Rapid Plasma Reagin Nonreactive (Nonreactive) 09/26/22 Hepatitis B Surface Antigen Neg (Neg) 08/17/20 Hepatitis B Surface Antigen. NON-REACTIVE (NON-REACTIVE) 09/26/22 Hepatitis C Antibody (EIA) NON-REACTIVE (NON-REACTIVE) 09/26/22 HIV (1&2) Ab and P24 Ag, 4th Gener Neg (Neg) 08/17/20 HIV (1&2) Ag and Ab Confirmation NON-REACTIVE (NON-REACTIVE) 09/26/22 Glucose 1 Hour 50 gm Load 115 mg/dl (70-130) 02/07/23 OB Optional Labs: Chlamydia trachomatis RNA Not Detected (NotDetected) 09/26/22 Neisseria gonorrhoeae RNA Not Detected (NotDetected) 09/26/22 Thyroid Stimulating Hormone (TSH) 1.963 uIu/ml (0.300-4.500) 07/11/22 Labs Reviewed: cf/sma-negative--mln cfdna-low risk--mln GBS+ - sln Diagnostic Findings post plac Coding Level of Care Code None Diagnoses Previous delivery affecting , antepartum O34.219 Carrier of group B Streptococcus Z22.330 Encounter for trial of labor
[2023-04-12 08:39] LABS: Hematocrit (blood only) 36.1 % (37.0-47.0); Hemoglobin 12.8 g/dl (12.0-16.0); Mean Corpuscular Hemoglobin 33.1 pg (25.0-34.0); Mean Corpuscular Hgb Conc 35.5 g/dL (32.0-36.0); Mean Corpuscular Volume 93.3 fL (80.0-100.0); Mean Platelet Volume 9.9 fL (9.4-12.4); Platelet Count 174 K/uL (130-400); RDW Coefficient of Variation 13.4 % (11.5-14.5); RDW Standard Deviation 45.8 fL (36.4-46.3); Red Blood Count 3.87 M/uL (4.20-5.40); White Blood Count 8.49 K/ul (4.8-10.8)
[2023-04-12] MEDS: LACTATED RINGER'S 1,000 ML IV PRN ×2 (08:51→23:40)
[2023-04-12] MEDS: PENICILLIN G POTASSIUM 3 MU in DEXTROSE 5% 100 ML IV PRN ×3 (13:12→21:37)
--- NOTE | 2023-04-12 17:09 | Labor Progress Brief Note ---
Date of Service April 12, 2023 Subjective Patient comfortable, barely feeling her contractions. Has store group manager and FOB at bedside. Assessment & Plan (1) Encounter for trial of labor: Plan: Lengthy discussion; recommended augmentation of her very slow labor with AROM or pitocin. Patient's questions answered. She discusses with FOB in their primary language so I am not able to completely understand what may have been said between them. Ultimately she does not agree to augmentation at this time and would like reassessment at 1800. Admission and Anticipated Discharge Date Admission Date: April 12, 2023 Physical Exam Genitourinary: 5-6/50/-1 Vertex palpable Membranes intact FHT Cat 1 [place] irregular - roughly Q5 with low amplitude waves in between Results & Data Vital Signs (Past 12 Hours) Vital Signs Temp Pulse Resp BP 04/12/23 16:34 73 04/12/23 16:34 107/60 04/12/23 11:18 20 04/12/23 11:18 97.7 F 04/12/23 11:18 73 04/12/23 11:18 106/53 L 04/12/23 05:59 04/12/23 05:59 98.2 F 04/12/23 05:58 70 111/64 Coding Level of Care Code None Diagnoses Encounter for trial of labor
--- NOTE | 2023-04-12 19:24 | Labor Progress Brief Note ---
Date of Service April 12, 2023 Subjective Patient states that contractions are worse than before. When asked how she is coping with them she notes she is still able to walk, talk, and behave normally during them. Assessment & Plan (1) Encounter for trial of labor: Plan: 38yo at 37w3d with TOLAC diagnosed this morning, and since then, extremely slow progress. Has thus far declined all interventions including augmentations. Lengthy discussion recommending AROM or pitocin to move labor forwards. FOB seems to have concerns, translated through patient, that AROM will increase risk of . Reassured her. Some factors that may lead to (including her biggest personal risk factor: pelvic/cephalic disproportion) are predetermined and no choices we make during her labor really can impact them one way or the other. However other factors, such as having a more efficient 1st stage of labor to save sufficient energy to push well during second stage, are within our control. At this point, Stacie does want to proceed with AROM, and asks appropriate questions about the process and the risks, which were answered to stated satisfaction. AROM performed with clear fluid drainage and vertex then well applied. Patient positioned semi-beth and will remain in bed for a while per RN counseling to patient shortly after ROM. Admission and Anticipated Discharge Date Admission Date: April 12, 2023 Physical Exam Genitourinary: 50/-2 Ballottable between ctx FHT Cat 1 [place] irregular, mostly Q1m low amplitude waves. Results & Data Vital Signs (Past 12 Hours) Vital Signs Temp Pulse Resp BP 04/12/23 18:33 81 04/12/23 18:33 109/75 04/12/23 16:34 73 04/12/23 16:34 107/60 04/12/23 11:18 20 04/12/23 11:18 97.7 F 20 04/12/23 11:18 73 04/12/23 11:18 106/53 L Coding Level of Care Code None Diagnoses Encounter for trial of labor
--- NOTE | 2023-04-12 23:29 | Labor Progress Brief Note ---
Date of Service April 12, 2023 Subjective Now breathing through some contractions, not others. Assessment & Plan (1) Encounter for trial of labor: Plan: Marked change in exam with vertex now firmly applied and cervix about 1/2 as thick as it was at last check, though dilation has not advanced further. Though we discussed the option to add either epidural or further augmentation, at this time all parties agree to continue current management. Admission and Anticipated Discharge Date Admission Date: April 12, 2023 Physical Exam Physical Exam: Sitting on birthing ball with access specialist assisting her through back pressure when I entered room. Repositions self by removing her own underwear and then lying in bed with frog-leg position, minimal assist needed. Genitourinary: [place]-clear fluid on maxi pad. Cervix 6/75/-1 with vertex now well applied FHT Cat 1 [place] Q3-5 Results & Data Vital Signs (Past 12 Hours) Vital Signs Temp Pulse Resp BP 04/12/23 23:06 18 04/12/23 23:06 97.9 F 18 04/12/23 23:06 79 04/12/23 23:06 106/54 L 04/12/23 21:35 18 04/12/23 21:35 98.2 F 18 04/12/23 19:30 18 04/12/23 19:30 98.8 F 18 04/12/23 19:31 69 04/12/23 19:31 97/55 L 04/12/23 18:33 81 04/12/23 18:33 109/75 04/12/23 16:34 73 04/12/23 16:34 107/60 Coding Level of Care Code None Diagnoses Encounter for trial of labor
[2023-04-12] MEDS ORDERED: LIDOCAINE 2%/EPINEPHRINE 1:200,000 20 ML PF ONE (23:44)
[2023-04-12] MEDS ORDERED: BUPIVACAINE 0.25% PF 30 ML VIAL ONE (23:44)
[2023-04-12] MEDS ORDERED: fentaNYL citrate PF 100 MCG/2 ML VIAL ONE (23:44)
[2023-04-12] MEDS ORDERED: SODIUM CHLORIDE 0.9% PF INJ 10 ML VIAL ONE (23:44)
[2023-04-12] MEDS ORDERED: ePHEDrine sulfate 50 MG/ML AMP ONE (23:44)
[2023-04-12] MEDS ORDERED: fentaNYL 2MCG/ML ROPIVACAINE 1.25MG/ML 100 ML BAG EPI ONE (23:45)
[2023-04-12] MEDS ORDERED: NALBUPHINE HCL INJ 10 MG/ML AMP IV PRN (23:58)
[2023-04-12] MEDS ORDERED: BUPIVACAINE 0.25% PF 30 ML VIAL EPI STA (23:58)
[2023-04-12] MEDS ORDERED: BUPIVACAINE 0.25% PF 30 ML VIAL EPI PRN (23:58)
[2023-04-12] MEDS ORDERED: NALOXONE HCL 1 MG in SODIUM CHLORIDE 0.9% 1000ML 1,000 ML IV PRN (23:58)
[2023-04-12] MEDS ORDERED: fentaNYL citrate PF 100 MCG/2 ML VIAL EPI PRN (23:58)
[2023-04-12] MEDS ORDERED: fentaNYL 2MCG/ML ROPIVACAINE 1.25MG/ML 100 ML BAG EPI PRN (23:58)
[2023-04-12] MEDS ORDERED: ePHEDrine sulfate 50 MG/ML AMP IV PRN (23:58)
[2023-04-12] MEDS ORDERED: LIDOCAINE 2%/EPINEPHRINE 1:200,000 20 ML PF EPI STA (23:58)
[2023-04-12] MEDS ORDERED: diphenhydrAMINE 50 MG/ML VIAL IV PRN (23:58)
[2023-04-12] MEDS ORDERED: NALOXONE HCL 0.4 MG/1 ML VIAL/CARP IV PRN (23:58)
[2023-04-12] MEDS ORDERED: LIDOCAINE 2% MPF LOCAL 5 ML VIAL EPI PRN (23:58)
[2023-04-12] MEDS ORDERED: SODIUM CHLORIDE 0.9% PF INJ 10 ML VIAL EPI PRN (23:58)
[2023-04-12] MEDS ORDERED: fentaNYL citrate PF 100 MCG/2 ML VIAL EPI STA (23:58)
[2023-04-12] MEDS ORDERED: ROPIVACAINE 0.5% PF 5 MG/ML 20 ML VIAL EPI PRN (23:58)
[2023-04-12] MEDS ORDERED: SODIUM CHLORIDE 0.9% PF INJ 10 ML VIAL EPI STA (23:58)
--- NOTE | 2023-04-12 23:58 | Anesthesiology Consultation ---
Date of Service April 12, 2023 Assessment & Plan (1) Encounter for pre-operative examination: Chart Review Chart Review: Patient NOT seen in Pre Admission Testing and Acceptable Risk for Labor Epidural Consults Requested none History Height/Weight Height: 5 ft 2 in Weight: 65.317 kg Allergies Allergy/AdvReac Type Severity Reaction Status Date / Time No Known Allergies Allergy Verified 04/09/23 09:51 Medications Home Medications Medication Instructions Recorded Confirmed Last Taken omega-3 fatty acids [Fish Oil PO 07/20/21 04/09/23 04/11/23 15:00 Concentrate] docusate sodium 50 mg capsule 50 mg PO DAILY 04/12/23 04/12/23 04/11/23 08:00 folic acid 800 mcg tablet 0.8 mg PO DAILY 04/12/23 04/12/23 04/11/23 15:00 prenat.vits,vlad,rtj-tsgi-fitky tab PO 04/12/23 04/11/23 15:00 Active Medications Generic Name Dose Route Start Last Admin Trade Name Freq PRN Reason Stop Dose Admin Lactated Ringer's 1,000 mls @ 125 mls/hr 04/12/23 08:00 04/12/23 23:40 Lr IV 04/14/23 07:59 999 mls/hr .Q8H PRN Administration L&D Protocol Protocol Penicillin G Potassium 3 mu/ 106 mls @ 100 mls/hr 04/12/23 11:00 04/12/23 22:55 Dextrose IV 04/22/23 10:59 Infused Q4H PRN Infusion GBS(+) Until Delivery Past Medical History Medical History Elderly primigravida Failure of descent in labor, delivered, current hospitalization Group beta Strep positive HPV test positive Past Family History Family History Family/Other Gaytan syndrome Denies family history of Ovarian cancer Breast cancer Colorectal cancer Past Surgical History Surgical History Delivery by section No history of previous surgery Postoperative state Social History Smoking Status: Never smoker Do You Dip or Chew Tobacco: No Hx Alcohol Use: No Hx Substance Use: No substance use type: does not use Physical Exam Vital Signs Last Vital Signs Temp 97.9 F 04/12/23 23:06 Pulse 64 04/12/23 23:53 Resp 18 04/12/23 23:06 BP 102/57 L 04/12/23 23:38 Pulse Ox 97 04/12/23 23:53 Testing Laboratory Results 04/12/23 08:14 Blood Type O Positive 04/12/23 08:14 Antibody Screen NEGATIVE 04/12/23 08:14
[2023-04-13] MEDS: PENICILLIN G POTASSIUM 3 MU in DEXTROSE 5% 100 ML IV PRN ×2 (01:40→05:46)
[2023-04-13] MEDS: LACTATED RINGER'S 1,000 ML IV PRN (01:44)
--- NOTE | 2023-04-13 01:56 | Communication Note ---
Date of Service: April 13, 2023 Patient requested and was administered an epidural while I was providing delivery care to another patient on the unit. strip and toco reviewed at this time, patient allowed to rest. No change to management at this time.
[2023-04-13] MEDS ORDERED: ceFAZolin 2000MG 2,000 MG/15 ML SYR IV SCH (06:00)
[2023-04-13] MEDS ORDERED: CITRIC ACID/SODIUM CITRATE 15 ML UDC PO SCH (06:00)
--- NOTE | 2023-04-13 06:42 | Labor Progress Brief Note ---
Date of Service April 13, 2023 Subjective Comfortable with epidural Assessment & Plan (1) Encounter for trial of labor: Plan: Begin second stage Admission and Anticipated Discharge Date Admission Date: April 12, 2023 Physical Exam Lymphatic: 10/100/+2 FHT Cat 1 [place] Q5-6 Results & Data Vital Signs (Past 12 Hours) Vital Signs Temp Pulse Resp BP Pulse Ox 04/13/23 06:36 84 99 04/13/23 06:31 99 H 100 04/13/23 06:30 92 H 102/55 L 04/13/23 06:26 91 H 97 04/13/23 06:21 97 H 99 04/13/23 06:19 82 94 04/13/23 06:16 83 97 04/13/23 06:00 18 04/13/23 06:00 18 04/13/23 06:15 82 96/55 L 04/13/23 06:11 85 97 04/13/23 06:06 76 96 04/13/23 06:01 76 96 04/13/23 05:59 78 95/54 L 04/13/23 05:56 74 95 04/13/23 05:51 87 97 04/13/23 05:46 86 98 04/13/23 05:44 77 96/53 L 04/13/23 05:41 74 96 04/13/23 05:36 87 97 04/13/23 05:31 67 98 04/13/23 05:30 68 18 109/57 L 04/13/23 05:26 86 98 04/13/23 05:21 73 98 04/13/23 05:16 74 97 04/13/23 05:14 86 95/53 L 04/13/23 05:11 77 97 04/13/23 05:06 78 98 04/13/23 05:01 98 04/13/23 05:01 79 04/13/23 05:01 88 107/56 L 04/13/23 04:56 98.2 F 87 18 99 04/13/23 04:51 85 98 04/13/23 04:46 71 102/57 L 100 04/13/23 04:40 59 L 97 04/13/23 04:35 60 97 04/13/23 04:30 66 98 04/13/23 04:29 59 L 89/51 L 04/13/23 04:25 60 96 04/13/23 04:23 62 93 04/13/23 04:20 64 96 04/13/23 04:15 72 95/51 L 99 04/13/23 04:00 16 04/13/23 04:00 16 04/13/23 04:09 74 98 04/13/23 04:04 61 97 04/13/23 04:02 62 90/53 L 04/13/23 03:59 80 97 04/13/23 03:54 62 96 04/13/23 03:49 61 96 04/13/23 03:44 62 88/48 L 96 04/13/23 03:39 67 95 04/13/23 03:34 69 95 04/13/23 03:30 18 04/13/23 03:30 18 04/13/23 03:29 70 93/51 L 95 04/13/23 03:27 71 94 04/13/23 03:24 62 96 04/13/23 03:19 58 L 97 04/13/23 03:14 57 L 88/48 L 96 04/13/23 03:09 62 96 04/13/23 03:00 16 04/13/23 03:00 16 04/13/23 03:04 61 96 04/13/23 03:03 60 88/49 L 04/13/23 02:59 96 04/13/23 02:59 60 04/13/23 02:59 55 L 87/46 L 04/13/23 02:54 63 95 04/13/23 02:49 61 97 04/13/23 02:47 98.1 F 04/13/23 02:44 70 87/50 L 98 04/13/23 02:39 63 96 04/13/23 02:34 62 98 04/13/23 02:29 98 04/13/23 02:29 64 04/13/23 02:29 64 93/54 L 04/13/23 02:24 58 L 97 04/13/23 02:19 67 98 04/13/23 02:16 60 90/51 L 04/13/23 02:00 18 04/13/23 02:00 18 04/13/23 02:14 64 98 04/13/23 02:09 63 98 04/13/23 02:04 64 98 04/13/23 01:59 60 90/54 L 98 04/13/23 01:54 73 98 04/13/23 01:49 60 97 04/13/23 01:44 61 95/51 L 98 04/13/23 01:39 60 99 04/13/23 01:34 60 99 04/13/23 01:29 62 92/51 L 99 04/13/23 01:24 62 96 04/13/23 01:19 59 L 97 04/13/23 01:14 64 91/51 L 96 04/13/23 01:09 55 L 96 04/13/23 01:04 61 96 04/13/23 00:30 18 04/13/23 00:30 18 04/13/23 01:00 98.4 F 59 L 18 91/52 L 04/13/23 00:59 61 97 04/13/23 00:54 61 96 04/13/23 00:49 60 96 04/13/23 00:44 76 97 04/13/23 00:45 67 98/55 L 04/13/23 00:39 65 95 04/13/23 00:34 63 96 04/13/23 00:29 72 97 04/13/23 00:25 67 99/48 L 04/13/23 00:24 68 97/46 L 96 04/13/23 00:22 68 99/45 L 04/13/23 00:20 75 106/51 L 04/13/23 00:19 71 115/56 L 97 04/13/23 00:16 72 18 118/53 L 04/13/23 00:15 74 92 04/13/23 00:13 74 99 04/13/23 00:08 71 100 04/13/23 00:03 74 98 04/12/23 23:58 98 04/12/23 23:58 64 04/12/23 23:53 97 04/12/23 23:53 64 04/12/23 23:48 97 04/12/23 23:48 67 04/12/23 23:43 98 04/12/23 23:43 69 04/12/23 23:38 100 04/12/23 23:38 64 04/12/23 23:38 102/57 L 04/12/23 23:06 18 04/12/23 23:06 97.9 F 18 04/12/23 23:06 79 0715/23 23:06 106/54 L 04/12/23 21:35 18 04/12/23 21:35 98.2 F 18 04/12/23 19:30 18 04/12/23 19:30 98.8 F 18 04/12/23 19:31 69 04/12/23 19:31 97/55 L Coding Level of Care Code None Diagnoses Encounter for trial of labor
[2023-04-13] MEDS ORDERED: OXYTOCIN 30 UNITS/500 ML BAG IV PRN (08:12)
--- NOTE | 2023-04-13 08:17 | Labor Progress Brief Note ---
Date of Service April 13, 2023 Subjective Patient now pushing about 2 hours. Beginning to feel tired but still giving excellent effort. Assessment & Plan (1) Encounter for trial of labor: Plan: Patient now agreeable to starting some pitocin to bring contractions more reliably close together and make her second stage more efficient. Aware of risks of pitocin and has been counseled thoroughly at various stages of this labor. Committed to vaginal delivery if at all possible and wants to continue to push, so would like to make the pushes more frequent and avoid eventual fatigue from a very long second stage. Admission and Anticipated Discharge Date Admission Date: April 12, 2023 Physical Exam Genitourinary: With pushes, up to silver-dollar size amount of scalp visible between labia. However, head easily reduces up and away with pressure between contractions, with flow of clear amniotic fluid. Caput noted. [place] Q2-5 FHT appropriate for stage 2 with good variability and accels, baseline ~140. Results & Data Vital Signs (Past 12 Hours) Vital Signs Temp Pulse Resp BP Pulse Ox 04/13/23 07:01 98.6 F 20 04/13/23 08:07 82 98 04/13/23 08:02 90 97 04/13/23 08:03 87 91 04/13/23 08:01 90 123/75 04/13/23 07:57 85 96 04/13/23 07:55 101 H 93 04/13/23 07:52 106 H 97 04/13/23 07:49 110 H 92 04/13/23 07:47 98 H 95 04/13/23 07:45 107 H 97/64 L 04/13/23 07:42 100 H 96 04/13/23 07:39 95 H 94 04/13/23 07:36 107 H 96 04/13/23 07:32 106 H 93 04/13/23 07:31 80 20 96 04/13/23 07:30 93 H 101/59 L 04/13/23 07:26 96 04/13/23 07:26 99 H 04/13/23 07:26 93 H 92 04/13/23 07:21 91 H 97 04/13/23 07:16 98 04/13/23 07:16 85 04/13/23 07:16 88 92 04/13/23 07:15 93 H 105/59 L 04/13/23 07:11 100 H 96 04/13/23 07:09 97 H 93 04/13/23 07:06 79 96 04/13/23 07:01 77 105/50 L 97 04/13/23 06:59 99 H 94 04/13/23 06:56 110 H 97 04/13/23 06:54 86 94 04/13/23 06:51 83 98 04/13/23 06:46 78 L 04/13/23 06:46 88 04/13/23 06:46 91 H 102/48 L 89 L 04/13/23 06:41 81 98 04/13/23 06:36 84 99 04/13/23 06:31 99 H 100 04/13/23 06:30 92 H 102/55 L 04/13/23 06:26 91 H 97 04/13/23 06:21 97 H 99 04/13/23 06:19 82 94 04/13/23 06:16 83 97 04/13/23 06:00 18 04/13/23 06:00 18 04/13/23 06:15 82 96/55 L 04/13/23 06:11 85 97 04/13/23 06:06 76 96 04/13/23 06:01 76 96 04/13/23 05:59 78 95/54 L 04/13/23 05:56 74 95 04/13/23 05:51 87 97 04/13/23 05:46 86 98 04/13/23 05:44 77 96/53 L 04/13/23 05:41 74 96 04/13/23 05:36 87 97 04/13/23 05:31 67 98 04/13/23 05:30 68 18 109/57 L 04/13/23 05:26 86 98 04/13/23 05:21 73 98 04/13/23 05:16 74 97 04/13/23 05:14 86 95/53 L 04/13/23 05:11 77 97 04/13/23 05:06 78 98 04/13/23 05:01 98 04/13/23 05:01 79 04/13/23 05:01 88 107/56 L 04/13/23 04:56 98.2 F 87 18 99 04/13/23 04:51 85 98 04/13/23 04:46 71 102/57 L 100 04/13/23 04:40 59 L 97 04/13/23 04:35 60 97 04/13/23 04:30 66 98 04/13/23 04:29 59 L 89/51 L 04/13/23 04:25 60 96 04/13/23 04:23 62 93 04/13/23 04:20 64 96 04/13/23 04:15 72 95/51 L 99 04/13/23 04:00 16 04/13/23 04:00 16 04/13/23 04:09 74 98 04/13/23 04:04 61 97 04/13/23 04:02 62 90/53 L 04/13/23 03:59 80 97 04/13/23 03:54 62 96 04/13/23 03:49 61 96 04/13/23 03:44 62 88/48 L 96 04/13/23 03:39 67 95 04/13/23 03:34 69 95 04/13/23 03:30 18 04/13/23 03:30 18 04/13/23 03:29 70 93/51 L 95 04/13/23 03:27 71 94 04/13/23 03:24 62 96 04/13/23 03:19 58 L 97 04/13/23 03:14 57 L 88/48 L 96 04/13/23 03:09 62 96 04/13/23 03:00 16 04/13/23 03:00 16 04/13/23 03:04 61 96 04/13/23 03:03 60 88/49 L 04/13/23 02:59 96 04/13/23 02:59 60 04/13/23 02:59 55 L 87/46 L 04/13/23 02:54 63 95 04/13/23 02:49 61 97 04/13/23 02:47 98.1 F 04/13/23 02:44 70 87/50 L 98 04/13/23 02:39 63 96 04/13/23 02:34 62 98 04/13/23 02:29 98 04/13/23 02:29 64 04/13/23 02:29 64 93/54 L 04/13/23 02:24 58 L 97 04/13/23 02:19 67 98 04/13/23 02:16 60 90/51 L 04/13/23 02:00 18 04/13/23 02:00 18 04/13/23 02:14 64 98 04/13/23 02:09 63 98 04/13/23 02:04 64 98 04/13/23 01:59 60 90/54 L 98 04/13/23 01:54 73 98 04/13/23 01:49 60 97 04/13/23 01:44 61 95/51 L 98 04/13/23 01:39 60 99 04/13/23 01:34 60 99 04/13/23 01:29 62 92/51 L 99 04/13/23 01:24 62 96 04/13/23 01:19 59 L 97 04/13/23 01:14 64 91/51 L 96 04/13/23 01:09 55 L 96 04/13/23 01:04 61 96 04/13/23 00:30 18 04/13/23 00:30 18 04/13/23 01:00 98.4 F 59 L 18 91/52 L 04/13/23 00:59 61 97 04/13/23 00:54 61 96 04/13/23 00:49 60 96 04/13/23 00:44 76 97 04/13/23 00:45 67 98/55 L 04/13/23 00:39 65 95 04/13/23 00:34 63 96 04/13/23 00:29 72 97 04/13/23 00:25 67 99/48 L 04/13/23 00:24 68 97/46 L 96 04/13/23 00:22 68 99/45 L 04/13/23 00:20 75 106/51 L 04/13/23 00:19 71 115/56 L 97 04/13/23 00:16 72 18 118/53 L 04/13/23 00:15 74 92 04/13/23 00:13 74 99 04/13/23 00:08 71 100 04/13/23 00:03 74 98 04/12/23 23:58 98 04/12/23 23:58 64 04/12/23 23:53 97 04/12/23 23:53 64 04/12/23 23:48 97 04/12/23 23:48 67 04/12/23 23:43 98 04/12/23 23:43 69 04/12/23 23:38 100 04/12/23 23:38 64 04/12/23 23:38 102/57 L 04/12/23 23:06 18 04/12/23 23:06 97.9 F 18 04/12/23 23:06 79 04/12/23 23:06 106/54 L 04/12/23 21:35 18 04/12/23 21:35 98.2 F 18 Coding Level of Care Code None Diagnoses Encounter for trial of labor
--- NOTE | 2023-04-13 09:22 | Labor Progress Brief Note ---
Date of Service April 13, 2023 Subjective Patient feeling pain in hips with each push, and as of 0850, refused to push anymore. Wanted to rest until 0930 per ALICIA Lombardi and then resume pushing. I entered room and discussed with patient that the hip pain suggests CPD and I do not feel resting and resuming pushing is likely to change the eventual outcome of her labor, but may be increasing her risks. Would recommend she resume pushing or, if unable/unwilling, accept . Assessment & Plan (1) Encounter for trial of labor: Plan: Patient counseled strongly on recommendation to move to . She requests to continue to push, which I discourage and explain I think it unlikely to succeed and would be increasing her risks without likely benefit. She requests operative vaginal delivery which I declined, as I do not feel it is safe in her case. 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 She is understandably very upset and needs time to consider. Ultimately after some time to discuss with family she agrees to move forward with . Admission and Anticipated Discharge Date Admission Date: April 12, 2023 Physical Exam Genitourinary: During contraction prior to pushing effort, clear LOF visible between labia. 10/100/+2 (no change from prior) with caput. Pushing brings scalp to labia, not as much visible as before, likely due to significant labial/perineal/perianal edema now present. Able to easily reduce head upwards even during maternal pushing effort. ear palpable at about 1 o'clock. Results & Data Vital Signs (Past 12 Hours) Vital Signs Temp Pulse Resp BP Pulse Ox 04/13/23 07:01 98.6 F 20 04/13/23 09:08 88 91 04/13/23 09:07 84 96 04/13/23 09:02 75 97 04/13/23 09:01 20 04/13/23 09:01 81 20 81/43 L 94 04/13/23 08:57 78 96 04/13/23 08:52 78 96 04/13/23 08:47 81 98 04/13/23 08:45 94 H 110/65 92 04/13/23 08:42 80 97 04/13/23 08:38 78 92 07/16/23 08:37 78 97 04/13/23 08:32 87 95 04/13/23 08:31 85 20 107/62 04/13/23 08:30 99 H 89 L 04/13/23 08:27 99 H 94 04/13/23 08:24 99 H 93 04/13/23 08:22 84 97 04/13/23 08:18 114 H 90 04/13/23 08:17 105 H 97 04/13/23 08:15 76 101/58 L 04/13/23 08:12 95 H 95 04/13/23 08:07 82 98 04/13/23 08:02 90 20 97 04/13/23 08:03 87 91 04/13/23 08:01 90 123/75 04/13/23 07:57 85 96 04/13/23 07:55 101 H 93 04/13/23 07:52 106 H 97 04/13/23 07:49 110 H 92 04/13/23 07:47 98 H 95 04/13/23 07:45 107 H 97/64 L 04/13/23 07:42 100 H 96 04/13/23 07:39 95 H 94 04/13/23 07:36 107 H 96 04/13/23 07:32 106 H 93 04/13/23 07:31 80 20 96 04/13/23 07:30 93 H 101/59 L 04/13/23 07:26 96 04/13/23 07:26 99 H 04/13/23 07:26 93 H 92 04/13/23 07:21 91 H 97 04/13/23 07:16 98 04/13/23 07:16 85 04/13/23 07:16 88 92 04/13/23 07:15 93 H 105/59 L 04/13/23 07:11 100 H 96 04/13/23 07:09 97 H 93 04/13/23 07:06 79 96 04/13/23 07:01 77 105/50 L 97 04/13/23 06:59 99 H 94 04/13/23 06:56 110 H 97 04/13/23 06:54 86 94 04/13/23 06:51 83 98 04/13/23 06:46 78 L 04/13/23 06:46 88 04/13/23 06:46 91 H 102/48 L 89 L 04/13/23 06:41 81 98 04/13/23 06:36 84 99 04/13/23 06:31 99 H 100 04/13/23 06:30 92 H 102/55 L 04/13/23 06:26 91 H 97 04/13/23 06:21 97 H 99 04/13/23 06:19 82 94 04/13/23 06:16 83 97 04/13/23 06:00 18 04/13/23 06:00 18 04/13/23 06:15 82 96/55 L 04/13/23 06:11 85 97 04/13/23 06:06 76 96 04/13/23 06:01 76 96 04/13/23 05:59 78 95/54 L 04/13/23 05:56 74 95 04/13/23 05:51 87 97 04/13/23 05:46 86 98 04/13/23 05:44 77 96/53 L 04/13/23 05:41 74 96 04/13/23 05:36 87 97 04/13/23 05:31 67 98 04/13/23 05:30 68 18 109/57 L 04/13/23 05:26 86 98 04/13/23 05:21 73 98 04/13/23 05:16 74 97 04/13/23 05:14 86 95/53 L 04/13/23 05:11 77 97 04/13/23 05:06 78 98 04/13/23 05:01 98 04/13/23 05:01 79 04/13/23 05:01 88 107/56 L 04/13/23 04:56 98.2 F 87 18 99 04/13/23 04:51 85 98 04/13/23 04:46 71 102/57 L 100 04/13/23 04:40 59 L 97 04/13/23 04:35 60 97 04/13/23 04:30 66 98 04/13/23 04:29 59 L 89/51 L 04/13/23 04:25 60 96 04/13/23 04:23 62 93 04/13/23 04:20 64 96 04/13/23 04:15 72 95/51 L 99 04/13/23 04:00 16 04/13/23 04:00 16 04/13/23 04:09 74 98 04/13/23 04:04 61 97 04/13/23 04:02 62 90/53 L 04/13/23 03:59 80 97 04/13/23 03:54 62 96 04/13/23 03:49 61 96 04/13/23 03:44 62 88/48 L 96 04/13/23 03:39 67 95 04/13/23 03:34 69 95 04/13/23 03:30 18 04/13/23 03:30 18 04/13/23 03:29 70 93/51 L 95 04/13/23 03:27 71 94 04/13/23 03:24 62 96 04/13/23 03:19 58 L 97 04/13/23 03:14 57 L 88/48 L 96 04/13/23 03:09 62 96 04/13/23 03:00 16 04/13/23 03:00 16 04/13/23 03:04 61 96 04/13/23 03:03 60 88/49 L 04/13/23 02:59 96 04/13/23 02:59 60 04/13/23 02:59 55 L 87/46 L 04/13/23 02:54 63 95 04/13/23 02:49 61 97 04/13/23 02:47 98.1 F 04/13/23 02:44 70 87/50 L 98 04/13/23 02:39 63 96 04/13/23 02:34 62 98 04/13/23 02:29 98 04/13/23 02:29 64 04/13/23 02:29 64 93/54 L 04/13/23 02:24 58 L 97 04/13/23 02:19 67 98 04/13/23 02:16 60 90/51 L 04/13/23 02:00 18 04/13/23 02:00 18 04/13/23 02:14 64 98 04/13/23 02:09 63 98 04/13/23 02:04 64 98 04/13/23 01:59 60 90/54 L 98 04/13/23 01:54 73 98 04/13/23 01:49 60 97 04/13/23 01:44 61 95/51 L 98 04/13/23 01:39 60 99 04/13/23 01:34 60 99 04/13/23 01:29 62 92/51 L 99 04/13/23 01:24 62 96 04/13/23 01:19 59 L 97 04/13/23 01:14 64 91/51 L 96 04/13/23 01:09 55 L 96 04/13/23 01:04 61 96 04/13/23 00:30 18 04/13/23 00:30 18 04/13/23 01:00 98.4 F 59 L 18 91/52 L 04/13/23 00:59 61 97 04/13/23 00:54 61 96 04/13/23 00:49 60 96 04/13/23 00:44 76 97 04/13/23 00:45 67 98/55 L 04/13/23 00:39 65 95 04/13/23 00:34 63 96 04/13/23 00:29 72 97 04/13/23 00:25 67 99/48 L 04/13/23 00:24 68 97/46 L 96 04/13/23 00:22 68 99/45 L 04/13/23 00:20 75 106/51 L 04/13/23 00:19 71 115/56 L 97 04/13/23 00:16 72 18 118/53 L 04/13/23 00:15 74 92 04/13/23 00:13 74 99 04/13/23 00:08 71 100 04/13/23 00:03 74 98 04/12/23 23:58 98 04/12/23 23:58 64 04/12/23 23:53 97 04/12/23 23:53 64 04/12/23 23:48 97 04/12/23 23:48 67 04/12/23 23:43 98 04/12/23 23:43 69 04/12/23 23:38 100 04/12/23 23:38 64 04/12/23 23:38 102/57 L 04/12/23 23:06 18 04/12/23 23:06 97.9 F 18 04/12/23 23:06 79 04/12/23 23:06 106/54 L 04/12/23 21:35 18 04/12/23 21:35 98.2 F 18 Coding Level of Care Code None Diagnoses Encounter for trial of labor
[2023-04-13] MEDS ORDERED: LACTATED RINGER'S 1,000 ML IV SCH ×2 (09:30→13:56)
[2023-04-13] MEDS ORDERED: CITRIC ACID/SODIUM CITRATE 15 ML UDC ONE (09:37)
[2023-04-13] MEDS ORDERED: OXYTOCIN 10 UNITS/ML VIAL ONE ×6 (10:13→11:32)
[2023-04-13] MEDS ORDERED: fentaNYL citrate PF 100 MCG/2 ML VIAL ONE (10:15)
[2023-04-13] MEDS ORDERED: LIDOCAINE 2%/EPINEPHRINE 1:200,000 20 ML PF ONE (10:15)
[2023-04-13] MEDS ORDERED: PHENYLEPHRINE 100MCG/ML 5ML SYR ONE (10:38)
[2023-04-13] MEDS ORDERED: ONDANSETRON INJ 2 MG/ML 2 ML VIAL ONE (10:52)
[2023-04-13] MEDS ORDERED: MoRPHine SULFATE PF 1 MG/ML 10 ML AMP/VIAL ONE (10:52)
[2023-04-13] MEDS ORDERED: NALOXONE HCL 0.08 MG in SYRINGE 1.8 ML IV PRN (10:56)
[2023-04-13] MEDS ORDERED: ONDANSETRON INJ 2 MG/ML 2 ML VIAL IV PRN ×2 (10:56→13:56)
[2023-04-13] MEDS ORDERED: LACTATED RINGER'S 500 ML IV PRN (10:56)
[2023-04-13] MEDS ORDERED: NALBUPHINE HCL INJ 10 MG/ML AMP IV PRN (10:56)
[2023-04-13] MEDS ORDERED: NALOXONE HCL 1 MG in SODIUM CHLORIDE 0.9% 1000ML 1,000 ML IV PRN (10:56)
[2023-04-13] MEDS ORDERED: NALOXONE HCL 0.4 MG/1 ML VIAL/CARP IV PRN (10:56)
[2023-04-13] MEDS ORDERED: ePHEDrine sulfate 50 MG/ML AMP IV PRN (10:56)
[2023-04-13] MEDS ORDERED: KETOROLAC 30 MG/ML VIAL IV PRN ×2 (10:56→13:56)
[2023-04-13] MEDS ORDERED: diphenhydrAMINE 50 MG/ML VIAL IV PRN ×2 (10:56→13:56)
[2023-04-13] MEDS ORDERED: MoRPHine SULFATE PF 1 MG/ML 10 ML AMP/VIAL EPI ONE (10:56)
[2023-04-13] MEDS ORDERED: PROMETHAZINE HCL 25 MG in SODIUM CHLORIDE 0.9% 50 ML IV PRN ×2 (10:56→13:56)
--- NOTE | 2023-04-13 10:59 | Communication Note ---
Date of Service: April 13, 2023 @ 1054 ,pt. epidural was bolused w/ 4 mg duramorph;Neg. asp.
[2023-04-13] MEDS ORDERED: SODIUM CHLORIDE 0.9% 1000ML 1,000 ML IV SCH (11:00)
[2023-04-13] MEDS ORDERED: DC INTRASPINAL MORPHINE SCH (11:00)
[2023-04-13] MEDS ORDERED: NO NARCOTICS OR SEDATIVES SCH (11:00)
--- NOTE | 2023-04-13 11:44 | Anesthesia Procedure Note ---
Date of Service April 13, 2023 Anesthesia Post Epidural Note Vital Signs Vital Signs: Temp Pulse Resp BP Pulse Ox 37.0 C 88 20 104/54 L 99 04/13/23 09:15 04/13/23 10:27 04/13/23 10:01 04/13/23 10:26 04/13/23 10:27 Pain Intensity Bilateral Abdomen: Pain Intensity: 5 Notes Mental Status: alert / awake / arousable Nausea / Vomiting: adequately controlled Pain: adequately controlled Airway Patency, RR, SpO2: stable & adequate BP & HR: stable & adequate Hydration State: stable & adequate Neuraxial Anesthesia: was administered and sensory block is resolving Anesthetic Complications: no major complications apparent Epidural: Removed without complications and With tip intact
--- NOTE | 2023-04-13 11:59 | Operative Report ---
PG Post Operative Report Pre & Post Diagnosis Operation Date: 04/13/23 10:15 Pre-Op Diagnosis: Failure to Descend after nearly 3 hours of pushing, Prior Caesarean Section, Suspected Cephalopelvic Disproportion Post-Op Diagnosis: Same plus Delivery of a live baby boy at 1048 I identified the patient and participated in the time-out.: Yes Procedure Operation Date: 04/13/23 10:15 Actual Procedures Repeat Low-Transverse Section Surgeon Roz Bhagat MD Veterinary Practice Manager Jaci Lombardi RN Estimated Blood Loss 600 Findings Consistent with Post-Op Diagnosis Specimens cord blood, placenta Anesthesia Type L&D Only Epidural Exists Complications none Disposition Accompanied Patient To Recovery: Yes Disposition: L&D Description of Procedure The patient was placed operating table in the supine position with a leftward tilt. She was prepped and draped in standard sterile fashion. The anesthetic was tested and found to be adequate. A time-out was held, identifying correct patient, procedure, positioning and preoperative antibiotics. There were no concerns. A Pfannenstiel skin incision was made with a knife and taken down to the underlying layer of fascia. The fascia was incised in the midline with the knife and taken out laterally with scissors. The superior edge of the fascial incision was grasped, elevated and dissected off the underlying rectus both superiorly and inferiorly. The muscles were bluntly in the midline. The peritoneum was entered bluntly. The incision was then stretched. The bladder retractor was placed. The vesicouterine peritoneum was identified, en tered with scissors and taken out laterally with scissors. The bladder flap was created digitally. A hysterotomy incision was created transversely in the lower uterine segment, final entry being accomplished in a blunt manner with the locomotive crane operator helper's fingers. Clear amniotic fluid was encountered. The locomotive crane operator helper's hand was used to elevate the head to the hysterotomy. The head was delivered using mild fundal pressure, and the shoulders and body followed without difficulty. The cord was clamped and cut and the was then handed off to the awaiting escrow officer. Cord blood was obtained. The placenta was Manually extracted. The uterus was exteriorized and cleared of all clot and debris with moistened laparotomy sponges. The hysterotomy incision was repaired in two layers, the first in a running locked layer, the second in an imbricating layer. The ovaries and tubes were seen to be normal bilaterally. The uterus was gently replaced in the abdomen, and the gutters were cleared of clot and debris. A final inspection of the hysterotomy revealed a spot of oozing near the hysterotomy which was addressed with Cassie and pressure, and after this did not achieve complete hemostasis, a [id number] suture of 0- chromic was utilized in this spot. Ultimately this achieved good hemostasis. The rectus muscles were allowed to reapproximate naturally. The fascia was then reapproximated with 1 Vicryl in a running nonlocked manner. The fascia was examined and found to be free of defect following closure. The subcutaneous tissue was copiously irrigated and reapproximated with 0-chromic, then the skin edges were closed with 4-0 monocryl in a subcuticular fashion. A dermabond dressing was applied. The russell was found to be draining clear yellow urine at completion of the procedure. I attest to the content of the Intraoperative Record and any orders documented therein. Any exceptions are noted below. I attest to the content of the Intraoperative Record and any orders documented therein. Any exceptions are noted below. OB Procedure Charges 31252
--- NOTE | 2023-04-13 13:48 | Anesthesiology Progress Note ---
Date of Service April 13, 2023 Anesthesia Post Procedure Vital Signs Vital Signs: Temp Pulse Resp BP Pulse Ox 04/13/23 12:42 20 04/13/23 12:32 20 04/13/23 12:22 20 04/13/23 12:12 20 04/13/23 12:02 20 04/13/23 13:12 36.7 C 04/13/23 11:52 20 04/13/23 11:42 36.6 C 04/13/23 07:01 37.0 C 04/13/23 13:43 62 04/13/23 13:43 61 94/51 L 100 04/13/23 13:38 56 L 100 04/13/23 13:33 58 L 96/53 L 100 04/13/23 13:28 58 L 100 04/13/23 13:23 65 04/13/23 13:23 70 94/52 L 100 04/13/23 13:18 58 L 100 04/13/23 13:13 59 L 04/13/23 13:13 61 91/55 L 100 04/13/23 13:08 63 100 04/13/23 13:03 57 L 89/53 L 100 04/13/23 12:58 63 100 04/13/23 12:54 58 L 91/46 L 04/13/23 12:53 56 L 91 04/13/23 12:48 61 100 04/13/23 12:43 90 100 04/13/23 12:38 71 100 04/13/23 12:33 66 113/50 L 100 04/13/23 12:28 72 100 04/13/23 12:24 86 108/55 L 04/13/23 12:23 76 100 04/13/23 12:21 90 90 04/13/23 12:18 71 100 04/13/23 12:13 63 04/13/23 12:13 69 84/48 L 100 04/13/23 12:08 74 100 04/13/23 12:03 68 89/42 L 100 04/13/23 11:58 74 100 04/13/23 11:53 63 92/55 L 100 04/13/23 11:47 70 100 04/13/23 11:43 68 91/50 L 04/13/23 10:27 88 99 04/13/23 10:26 90 104/54 L 07/16/23 10:23 81 111/53 L 04/13/23 10:22 83 97 04/13/23 10:17 86 97 04/13/23 10:15 81 110/51 L 04/13/23 10:12 80 98 04/13/23 10:07 82 97 04/13/23 10:01 20 04/13/23 10:01 20 04/13/23 10:02 79 98 04/13/23 10:00 82 111/59 L 04/13/23 09:57 77 96 04/13/23 09:52 81 97 04/13/23 09:47 84 98 04/13/23 09:44 83 120/58 L 04/13/23 09:42 91 H 97 04/13/23 09:37 79 97 04/13/23 09:32 80 97 04/13/23 09:31 100 H 20 120/59 L 94 04/13/23 09:27 94 H 97 04/13/23 09:22 93 H 96 04/13/23 09:17 84 97 04/13/23 09:15 37.0 C 85 141/72 H 04/13/23 09:12 87 99 04/13/23 09:08 88 91 04/13/23 09:07 84 96 04/13/23 09:02 75 97 04/13/23 09:01 20 04/13/23 09:01 81 20 81/43 L 94 04/13/23 08:57 78 96 04/13/23 08:52 78 96 04/13/23 08:47 81 98 04/13/23 08:45 94 H 110/65 92 04/13/23 08:42 80 97 04/13/23 08:38 78 92 04/13/23 08:37 78 97 04/13/23 08:32 87 95 04/13/23 08:31 85 20 107/62 04/13/23 08:30 99 H 89 L 04/13/23 08:27 99 H 94 04/13/23 08:24 99 H 93 04/13/23 08:22 84 97 04/13/23 08:18 114 H 90 04/13/23 08:17 105 H 97 04/13/23 08:15 76 101/58 L 04/13/23 08:12 95 H 95 04/13/23 08:07 82 98 04/13/23 08:02 90 20 97 04/13/23 08:03 87 91 04/13/23 08:01 90 123/75 04/13/23 07:57 85 96 04/13/23 07:55 101 H 93 04/13/23 07:52 106 H 97 04/13/23 07:49 110 H 92 04/13/23 07:47 98 H 95 04/13/23 07:45 107 H 97/64 L 04/13/23 07:42 100 H 96 04/13/23 07:39 95 H 94 04/13/23 07:36 107 H 96 04/13/23 07:32 106 H 93 04/13/23 07:31 80 20 96 04/13/23 07:30 93 H 101/59 L 04/13/23 07:26 96 04/13/23 07:26 99 H 04/13/23 07:26 93 H 92 04/13/23 07:21 91 H 97 04/13/23 07:16 98 04/13/23 07:16 85 04/13/23 07:16 88 92 04/13/23 07:15 93 H 105/59 L 04/13/23 07:11 100 H 96 04/13/23 07:09 97 H 93 04/13/23 07:06 79 96 04/13/23 07:01 77 105/50 L 97 04/13/23 06:59 99 H 94 04/13/23 06:56 110 H 97 04/13/23 06:54 86 94 04/13/23 06:51 83 98 04/13/23 06:46 78 L 04/13/23 06:46 88 04/13/23 06:46 91 H 102/48 L 89 L 04/13/23 06:41 81 98 04/13/23 06:36 84 99 04/13/23 06:31 99 H 100 04/13/23 06:30 92 H 102/55 L 04/13/23 06:26 91 H 97 04/13/23 06:21 97 H 99 04/13/23 06:19 82 94 04/13/23 06:16 83 97 04/13/23 06:00 18 04/13/23 06:00 18 07/16/23 06:15 82 96/55 L 04/13/23 06:11 85 97 04/13/23 06:06 76 96 04/13/23 06:01 76 96 04/13/23 05:59 78 95/54 L 04/13/23 05:56 74 95 04/13/23 05:51 87 97 04/13/23 05:46 86 98 04/13/23 05:44 77 96/53 L 04/13/23 05:41 74 96 04/13/23 05:36 87 97 04/13/23 05:31 67 98 04/13/23 05:30 68 18 109/57 L 04/13/23 05:26 86 98 04/13/23 05:21 73 98 04/13/23 05:16 74 97 04/13/23 05:14 86 95/53 L 04/13/23 05:11 77 97 04/13/23 05:06 78 98 04/13/23 05:01 98 04/13/23 05:01 79 04/13/23 05:01 88 107/56 L 04/13/23 04:56 36.8 C 87 18 99 04/13/23 04:51 85 98 04/13/23 04:46 71 102/57 L 100 04/13/23 04:40 59 L 97 04/13/23 04:35 60 97 04/13/23 04:30 66 98 04/13/23 04:29 59 L 89/51 L 04/13/23 04:25 60 96 04/13/23 04:23 62 93 04/13/23 04:20 64 96 04/13/23 04:15 72 95/51 L 99 04/13/23 04:00 16 04/13/23 04:00 16 04/13/23 04:09 74 98 04/13/23 04:04 61 97 04/13/23 04:02 62 90/53 L 04/13/23 03:59 80 97 04/13/23 03:54 62 96 04/13/23 03:49 61 96 04/13/23 03:44 62 88/48 L 96 04/13/23 03:39 67 95 04/13/23 03:34 69 95 04/13/23 03:30 18 04/13/23 03:30 18 04/13/23 03:29 70 93/51 L 95 07/16/23 03:27 71 94 04/13/23 03:24 62 96 04/13/23 03:19 58 L 97 04/13/23 03:14 57 L 88/48 L 96 04/13/23 03:09 62 96 04/13/23 03:00 16 04/13/23 03:00 16 04/13/23 03:04 61 96 04/13/23 03:03 60 88/49 L 04/13/23 02:59 96 04/13/23 02:59 60 04/13/23 02:59 55 L 87/46 L 04/13/23 02:54 63 95 04/13/23 02:49 61 97 04/13/23 02:47 36.7 C 04/13/23 02:44 70 87/50 L 98 04/13/23 02:39 63 96 04/13/23 02:34 62 98 04/13/23 02:29 98 04/13/23 02:29 64 04/13/23 02:29 64 93/54 L 04/13/23 02:24 58 L 97 04/13/23 02:19 67 98 04/13/23 02:16 60 90/51 L 04/13/23 02:00 18 04/13/23 02:00 18 04/13/23 02:14 64 98 04/13/23 02:09 63 98 04/13/23 02:04 64 98 04/13/23 01:59 60 90/54 L 98 04/13/23 01:54 73 98 04/13/23 01:49 60 97 04/13/23 01:44 61 95/51 L 98 04/13/23 01:39 60 99 04/13/23 01:34 60 99 04/13/23 01:29 62 92/51 L 99 04/13/23 01:24 62 96 04/13/23 01:19 59 L 97 04/13/23 01:14 64 91/51 L 96 04/13/23 01:09 55 L 96 04/13/23 01:04 61 96 04/13/23 00:30 18 04/13/23 00:30 18 04/13/23 01:00 36.9 C 59 L 18 91/52 L 04/13/23 00:59 61 97 04/13/23 00:54 61 96 04/13/23 00:49 60 96 04/13/23 00:44 76 97 04/13/23 00:45 67 98/55 L 04/13/23 00:39 65 95 04/13/23 00:34 63 96 04/13/23 00:29 72 97 04/13/23 00:25 67 99/48 L 04/13/23 00:24 68 97/46 L 96 04/13/23 00:22 68 99/45 L 04/13/23 00:20 75 106/51 L 04/13/23 00:19 71 115/56 L 97 04/13/23 00:16 72 18 118/53 L 04/13/23 00:15 74 92 04/13/23 00:13 74 99 04/13/23 00:08 71 100 04/13/23 00:03 74 98 04/12/23 23:58 98 04/12/23 23:58 64 04/12/23 23:53 97 04/12/23 23:53 64 04/12/23 23:48 97 04/12/23 23:48 67 04/12/23 23:43 98 04/12/23 23:43 69 04/12/23 23:38 100 04/12/23 23:38 64 04/12/23 23:38 102/57 L 04/12/23 23:06 18 04/12/23 23:06 36.6 C 18 04/12/23 23:06 79 04/12/23 23:06 106/54 L 04/12/23 21:35 18 04/12/23 21:35 36.8 C 18 04/12/23 19:30 18 04/12/23 19:30 37.1 C 18 04/12/23 19:31 69 04/12/23 19:31 97/55 L 04/12/23 18:33 81 04/12/23 18:33 109/75 04/12/23 16:34 73 04/12/23 16:34 107/60 Pain Intensity Bilateral Abdomen: Pain Intensity: 5 Transfer of Care Handoff Completed per policy Notes Mental Status: alert / awake / arousable Patient Amnestic to Procedure: Yes Nausea / Vomiting: adequately controlled Pain: adequately controlled Airway Patency, RR, SpO2: stable & adequate BP & HR: stable & adequate Hydration State: stable & adequate Neuraxial Anesthesia: was administered, sensory block is resolving and see Notes below Anesthetic Complications: no major complications apparent Notes: Patient had in situ epidural anesthesia
[2023-04-13] MEDS ORDERED: OXYTOCIN 30 UNITS in LACTATED RINGER'S 1,000 ML IV SCH (13:56)
[2023-04-13] MEDS ORDERED: BENZOCAINE 20% AER SPR 82.5 GM CAN EXT PRN (13:56)
[2023-04-13] MEDS ORDERED: HYDROCORTISONE ACETATE 25 MG SUPP PR PRN (13:56)
[2023-04-13] MEDS ORDERED: DIPHTHERIA/TETANUS/PERTUSSIS Vaccine (Tdap, Age 7+yrs) 0.5mL SYR/VL IM ONE (13:56)
[2023-04-13] MEDS ORDERED: diphenhydrAMINE Capsule 25 MG CAP PO PRN (13:56)
[2023-04-13] MEDS ORDERED: MEPERIDINE HCL 50 MG/ML CARP IV PRN (13:56)
[2023-04-13] MEDS ORDERED: IBUPROFEN 600 MG TAB PO PRN (13:56)
[2023-04-13] MEDS ORDERED: SENNA 8.6 MG TAB PO PRN (13:56)
[2023-04-13] MEDS ORDERED: MAGNESIUM HYDROXIDE SUSP 30 ML UDC PO PRN (13:56)
[2023-04-13] MEDS ORDERED: oxyCODONE/ACETAMINOPHEN 5mg/325mg TAB PO PRN (13:56)
[2023-04-13] MEDS: SIMETHICONE 80 MG CHEW PO SCH ×2 (17:22→20:23)
[2023-04-13] MEDS: DOCUSATE SODIUM 100 MG CAP PO SCH (20:23)
[2023-04-14] MEDS ORDERED: KETOROLAC 30 MG/ML VIAL IV PRN (04:56)
[2023-04-14] MEDS ORDERED: diphenhydrAMINE 50 MG/ML VIAL IV PRN (04:56)
[2023-04-14] MEDS ORDERED: PROMETHAZINE HCL 25 MG in SODIUM CHLORIDE 0.9% 50 ML IV PRN (04:56)
[2023-04-14] MEDS ORDERED: diphenhydrAMINE Capsule 25 MG CAP PO PRN (04:56)
[2023-04-14] MEDS ORDERED: MEPERIDINE HCL 50 MG/ML CARP IV PRN (04:56)
[2023-04-14] MEDS ORDERED: ONDANSETRON INJ 2 MG/ML 2 ML VIAL IV PRN (04:56)
--- NOTE | 2023-04-14 06:13 | Obstetrical Progress Note ---
Date of Service <Brina Butcher DO - Last Filed: 04/14/23 07:11> April 14, 2023 Assessment & Plan <Brina Butcher DO - Last Filed: 04/14/23 07:11> (1) care following delivery: Pt states that she is feeling okay today. Not yet ambulating or voiding on own (russell just removed). Pain well controlled with percocet. Routine care; OOB, ambulation, diet progression as tolerated. Will start zoloft since patient has been tearful and feeling guilty. Discussed medication with patient and she is agreeable. Anticipate discharge 48-72 hours after procedure, likely Friday. After discharge will have 6 week follow-up with Dr. Bhagat. <Roz Bhagat MD - Last Filed: 04/14/23 07:18> (1) care following delivery: Subjective <Brina Butcher DO - Last Filed: 04/14/23 07:11> Pt is a 38 y/o female who is POD#1 following delivery at 37 4/7 weeks. Delivery was complicated by CPD leading to primary c section. Pt states she is feeling okay today. She has been passing gas, but has not yet been ambulating. Her russell was just removed, so she has not urinated yet. She states she did eat something after the procedure and had no issues with nausea or vomiting. She states that she has had little lochia since the procedure. She states that her pain is very little, 2/10 or so, well controlled with percocet. She states that she feels like the room is really hot today and tells me that she felt very emotional yesterday, but has been feeling better since her came. She is breast feeding. Constitutional: no fever, no chills or no sweats Respiratory: no dyspnea Cardiovascular: no chest pain or no palpitations Breast: no breast pain Genitourinary (female): no dysuria Neurologic: no headache(s) no changes in vision, no headaches Physical Exam <Brina Butcher DO - Last Filed: 04/14/23 07:11> General: Alert, oriented. No acute distress. Cardiac: Regular rate and rhythm, no murmurs, rubs, or gallops. Respiratory: Clear to auscultation bilaterally, no wheezes/rales/rhonchi. No increased work of breathing. Symmetrical chest rise. No respiratory distress. Abdomen: Soft, nontender, nondistended. Bowel sounds present. Uterus: Uterine fundus firm, palpable below the umbilicus. Surgical incision intact and without discharge or erythema. Lower extremities: No lower extremity edema or swelling. No deep calf pain. Results & Data <Brina Butcher DO - Last Filed: 04/14/23 07:11> Vital Signs (Past 12 Hours) Vital Signs Temp Pulse Resp BP BP Pulse Ox O2 Del Method 04/14/23 05:21 18 95 04/14/23 03:04 37.4 C 69 18 87/54 L 97 Room Air 04/14/23 04:25 18 96 04/14/23 03:00 18 96 04/14/23 02:00 18 96 04/14/23 01:00 18 97 04/14/23 00:00 18 96 04/13/23 23:10 18 96 04/13/23 22:00 18 100 04/13/23 23:07 37 C 70 18 88/55 L 97 Room Air 04/13/23 21:30 18 94 04/13/23 19:00 18 100 04/13/23 20:40 18 100 04/13/23 20:40 37.1 C 84 18 98/69 L 100 Room Air <Roz Bhagat MD - Last Filed: 04/14/23 07:18> Co-Signing Physician Notes Resident Physician Supervision Note: I interviewed and examined the patient. Discussed with Dr. Butcher and agree with findings and plan as documented in the note. Any exceptions or clarifications are listed here: Patient discussion this morning re: mood, agreeable to zoloft, however notably much cheerier affect this morning / appears normal. Did also light up when counseled that yes, she can have many babies even if they do require delivery; she may have been presuming she was limited to a small family if she could not have vaginal deliveries? Documented By: Roz Bhagat MD, FACOG Resident Activity Tracking <Brina Butcher DO - Last Filed: 04/14/23 07:11> Resident Involvement: Resident Care Provided Care Provided: OB Delivery
[2023-04-14 06:43] LABS: Basophils # (auto) 0.03 K/uL (0-0.2); Basophils % (auto) 0.3 %; Eosinophils # (auto) 0.02 K/uL (0-0.50); Eosinophils % (auto) 0.2 %; Hematocrit (blood only) 27.8 % (37.0-47.0); Hemoglobin 9.7 g/dl (12.0-16.0); Immature Granulocytes # (auto) 0.08 K/uL (0.01-0.20); Immature Granulocytes % (auto) 0.7 %; Lymphocytes # (auto) 1.39 K/uL (1.2-3.4); Mean Corpuscular Hemoglobin 33.7 pg (25.0-34.0); Mean Corpuscular Hgb Conc 34.9 g/dL (32.0-36.0); Mean Corpuscular Volume 96.5 fL (80.0-100.0); Monocytes # (auto) 0.87 K/uL (0.11-0.59); Monocytes % (auto) 7.5 %; Neutrophils % (auto) 79.3 %; Platelet Count 144 K/uL (130-400); RDW Coefficient of Variation 13.5 % (11.5-14.5); RDW Standard Deviation 47.8 fL (36.4-46.3); Red Blood Count 2.88 M/uL (4.20-5.40); White Blood Count 11.59 K/ul (4.8-10.8)
[2023-04-14] MEDS: FERROUS SULFATE 325 MG TAB PO SCH (08:33)
[2023-04-14] MEDS: SIMETHICONE 80 MG CHEW PO SCH ×4 (08:33→20:43)
[2023-04-14] MEDS: PRENATAL VITAMIN 1 TAB PO SCH (08:33)
[2023-04-14] MEDS: DOCUSATE SODIUM 100 MG CAP PO SCH ×2 (08:33→20:43)
[2023-04-14] MEDS: oxyCODONE/ACETAMINOPHEN 5mg/325mg TAB PO PRN ×2 (08:33→18:01)
[2023-04-14] MEDS: IBUPROFEN 600 MG TAB PO PRN ×2 (08:34→18:01)
[2023-04-14] MEDS: SERTRALINE HCL 50 MG TABLET PO SCH (08:41)
[2023-04-14] MEDS ORDERED: bisacodyL 5 MG TABEC PO SCH (20:00)
[2023-04-15] MEDS: IBUPROFEN 600 MG TAB PO PRN ×5 (03:16→22:09)
[2023-04-15] MEDS: oxyCODONE/ACETAMINOPHEN 5mg/325mg TAB PO PRN ×5 (03:16→22:10)
[2023-04-15 06:17] LABS: Hematocrit (blood only) 24.7 % (37.0-47.0); Hemoglobin 8.6 g/dl (12.0-16.0)
--- NOTE | 2023-04-15 06:35 | Obstetrical Progress Note ---
Date of Service <Brina Butcher DO - Last Filed: 04/15/23 06:36> April 15, 2023 Assessment & Plan <Brina Butcher DO - Last Filed: 04/15/23 06:36> (1) care following delivery: Pt states she is feeling okay today. Ambulating and voiding now. Pain well controlled with percocet. Routine care; OOB, ambulation, continue regular diet. Anticipate discharge 48-72 hours after procedure, likely tomorrow. After discharge will have 6 week follow-up with Dr. Bhagat. <Zabrina Bullard MD, FACOG - Last Filed: 04/15/23 08:28> (1) care following delivery: Day #:: 2 Subjective <Brina Butcher DO - Last Filed: 04/15/23 06:36> Pt is a 38 y/o female who is POD#2 following delivery at 37 4/7 weeks.Pt goes by "Stacie." She states that she is feeling okay today. She states she walked around a little bit yesterday and has been voiding and passing gas. She has been able to eat without nausea or vomiting. She states that she is still having a 6-7/10 lower abdominal pain, but that prn pain medication has been helping. She still has some persistent lochia, but she states it seems to be getting better. She is breast feeding and states that it has aleksandra going well, better today than yesterday. Constitutional: no fever, no chills or no sweats Respiratory: no dyspnea Cardiovascular: no chest pain or no palpitations Breast: no breast pain Genitourinary (female): no dysuria Neurologic: no headache(s) no changes in vision, no headaches Physical Exam <Brina Butcher DO - Last Filed: 04/15/23 06:36> General: Alert, oriented. No acute distress. Cardiac: Regular rate and rhythm, no murmurs, rubs, or gallops. Respiratory: Clear to auscultation bilaterally, no wheezes/rales/rhonchi. No increased work of breathing. Symmetrical chest rise. No respiratory distress. Abdomen: Soft, nontender, nondistended. Bowel sounds present. Uterus: Uterine fundus firm, palpable below the umbilicus. Surgical incision intact and well healing. Lower extremities: No lower extremity edema or swelling. No deep calf pain. Results & Data <Brina Butcher DO - Last Filed: 04/15/23 06:36> Vital Signs (Past 12 Hours) Vital Signs Temp Pulse Pulse Resp BP BP Pulse Ox 04/15/23 03:35 36.5 C 71 16 98/62 L 04/14/23 21:20 36.5 C 67 20 95/58 L 100 O2 Del Method 04/15/23 03:35 Room Air 04/14/23 21:20 Room Air <Zabrina Bullard MD, FACOG - Last Filed: 04/15/23 08:28> Co-Signing Physician Notes Resident Physician Supervision Note: I was present with Dr. Butcher during the history and exam. I discussed the case with the resident and agree with the findings and plan as documented in the note. Any exceptions or clarifications are listed here: stable, routine care. mood improved. oziel po, voiding, ambul without prob. . abd soft ff 2 down, nt, incision c/d/i. ext nt calves. enc scd wearing. explained why. hgb noted. Documented By: Zabrina Bullard MD, FACOG Resident Activity Tracking <Brina Butcher DO - Last Filed: 04/15/23 06:36> Resident Involvement: Resident Care Provided Care Provided: OB Delivery
[2023-04-15] MEDS: FERROUS SULFATE 325 MG TAB PO SCH (08:34)
[2023-04-15] MEDS: SIMETHICONE 80 MG CHEW PO SCH ×4 (08:34→22:09)
[2023-04-15] MEDS: PRENATAL VITAMIN 1 TAB PO SCH (08:34)
[2023-04-15] MEDS: SERTRALINE HCL 50 MG TABLET PO SCH (08:35)
[2023-04-15] MEDS: DOCUSATE SODIUM 100 MG CAP PO SCH ×2 (08:35→22:09)
[2023-04-15] MEDS ORDERED: bisacodyL 10 MG SUPP PR PRN (13:34)
[2023-04-16] MEDS: IBUPROFEN 600 MG TAB PO PRN ×2 (05:26→09:27)
--- NOTE | 2023-04-16 05:51 | Obstetrical Progress Note ---
Date of Service <Brina Ojeda DO Gu[place]upe - Last Filed: 04/16/23 05:51> April 16, 2023 Assessment & Plan <Brina Ojeda DO [place] - Last Filed: 04/16/23 05:51> (1) care following delivery: Pt doing well today, ambulating, voiding, and eating. Pain well controlled with percocet and motrin prn. Routine care; OOB, ambulation, continue regular diet. Plan for discharge today. After discharge will have 6 week follow-up with Dr. Bhagat. <Tessa Meraz MD, FACOG - Last Filed: 04/16/23 06:58> (1) care following delivery: Subjective <Brina Ojeda DO [place] - Last Filed: 04/16/23 05:51> Pt is a 38 y/o female who is POD#3 following delivery at 37 4/7 weeks.Pt goes by "Stacie."Pt states that she is feeling fine today. She is ambulating, voiding, passing gas, and has had a bowel movement. Spoke to nursing staff, who noted that she seems to be much less tearful the last day or two and has been overall improving. Her pain is well controlled with motrin and percocet. She has very little bleeding now. She is still breast feeding and states it has been going okay. No questions or complaints at this time. Constitutional: no fever, no chills or no sweats Respiratory: no dyspnea Cardiovascular: no chest pain or no palpitations Breast: no breast pain Genitourinary (female): no dysuria Neurologic: no headache(s) no changes in vision, no headaches Physical Exam <Brina Ojeda DO [place] - Last Filed: 04/16/23 05:51> General: Alert, oriented. No acute distress. Cardiac: Regular rate and rhythm, no murmurs, rubs, or gallops. Respiratory: Clear to auscultation bilaterally, no wheezes/rales/rhonchi. No increased work of breathing. Symmetrical chest rise. No respiratory distress. Abdomen: Soft, nontender, nondistended. Bowel sounds present. Uterus: Uterine fundus firm, palpable below the umbilicus. Surgical incision intact and continuing to heal well. Lower extremities: No lower extremity edema or swelling. No deep calf pain. Results & Data <Brina Butcher DO - Last Filed: 04/16/23 05:51> Vital Signs (Past 12 Hours) Vital Signs Temp Pulse Resp BP Pulse Ox O2 Del Method 04/15/23 23:45 Room Air 04/15/23 23:45 36.7 C 72 18 102/64 98 Room Air 04/15/23 20:15 37.0 C 78 20 112/66 97 Room Air <Tessa Meraz MD, FACOG - Last Filed: 04/16/23 06:58> Co-Signing Physician Notes Resident Physician Supervision Note: I was present with Dr. Butcher during the history and exam. I discussed the case with the resident and agree with the findings and plan as documented in the note. Any exceptions or clarifications are listed here: [None] Documented By: Tessa Meraz MD, FACOG Resident Activity Tracking <Brina Butcher DO - Last Filed: 04/16/23 05:51> Resident Involvement: Resident Care Provided Care Provided: OB Delivery
[2023-04-16] MEDS: FERROUS SULFATE 325 MG TAB PO SCH (09:27)
[2023-04-16] MEDS: DOCUSATE SODIUM 100 MG CAP PO SCH (09:27)
[2023-04-16] MEDS: PRENATAL VITAMIN 1 TAB PO SCH (09:27)
[2023-04-16] MEDS: SIMETHICONE 80 MG CHEW PO SCH (09:27)
[2023-04-16] MEDS: oxyCODONE/ACETAMINOPHEN 5mg/325mg TAB PO PRN (09:27)
[2023-04-16] MEDS: SERTRALINE HCL 50 MG TABLET PO SCH (09:28)
--- NOTE | 2023-04-17 08:02 | Discharge Summary ---
Date of Service April 17, 2023 Admission HPI Per Admitting Provider 38 yo at 37 3/7 wga presented for evaluation due to decreased FM and two small blood clots. On arrival, she began feeling more movement and had not noted more bleeding. Denied regular ctx, LOF, VB. 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 Pain well controlled with percocet and motrin prn. Routine care; OOB, ambulation, continue regular diet. Plan for discharge today. After discharge will have 6 week follow-up with Dr. Bhagat. Coding Level of Care Code None Diagnoses care following delivery Z39.2
== END 2023-04-16 13:15 | disposition home or self-care (01) | DRG 788 ==
LOC: OPB 02:59 → 4S1 03:03 → 4E2 04-13 14:55